=== PATIENT | male | born 1995 | race Caucasian/White ===

== ENCOUNTER 2016-06-19 06:08 | Emergency (ER) | payer OTHER ==
[2016-06-19] MEDS ORDERED: IBUPROFEN IV 600 MG in SODIUM CHLORIDE 0.9% 250 ML IV STA (06:22)
[2016-06-19] MEDS ORDERED: ONDANSETRON 4 MG/2 ML VIAL IVP STA (06:22)
[2016-06-19] MEDS ORDERED: SODIUM CHLORIDE 0.9% 1,000 ML IV STA (06:23)
[2016-06-19] MEDS ORDERED: DIPHENOX-ATROP 2.5-0.025 MG 1 EACH TAB PO STA (06:23)
--- NOTE | 2016-06-19 06:26 | ED ---
General Adult HPI - General Source: patient, RN notes reviewed Mode of arrival: wheelchair Limitations: no limitations <Flo Lee - Last Filed: 06/19/16 07:01> <Jaren Denny - Last Filed: 06/19/16 08:25> - General Chief complaint: Nausea/Vomiting/Diarrhea Stated complaint: NVD,abd pain Time Seen by Provider: 06/19/16 06:10 - History of Present Illness Initial comments: This is a 20-year-old male who presents to the emergency department complaining of abdominal pain with nausea vomiting and diarrhea. Patient states started about 2 hours ago and the vomiting has seemed to subside with diarrhea continues. Patient states abdominal pain is lower abdomen. Patient states has not one side worse than the other. Patient denies any dysuria hematuria urinary frequency. Patient did have a low-grade fever and some chills. Patient denies any difficulty breathing shortness of breath per patient denies headache patient denies numbness weakness. Patient denies being around anyone who has similar symptoms. Patient states he ate the same things other people tonight and no one else is sick. (Flo Lee) - Related Data Previous Rx's Medication Instructions Recorded Dicyclomine HCl [Bentyl] 20 mg PO QID PRN #15 tab 06/19/16 Ondansetron Odt [Zofran Odt] 4 mg PO Q8HR PRN #10 tab 06/19/16 Allergies Allergy/AdvReac Type Severity Reaction Status Date / Time No Known Allergies Allergy Verified 06/19/16 07:47 Review of Systems ROS Other: All systems not noted in ROS Statement are negative. <Flo Lee - Last Filed: 06/19/16 07:01> ROS Other: All systems not noted in ROS Statement are negative. <Jaren Denny - Last Filed: 06/19/16 08:25> ROS Statement: Those systems with pertinent positive or pertinent negative responses have been documented in the HPI. Past Medical History Past Medical History: No Reported History History of Any Multi-Drug Resistant Organisms: None Reported Past Surgical History: No Surgical Hx Reported Additional Past Surgical History / Comment(s): ingrown toenail Past Psychological History: Anxiety, Depression Smoking Status: Former smoker Past Alcohol Use History: Rare Past Drug Use History: None Reported <Flo Lee - Last Filed: 06/19/16 07:01> General Exam Limitations: no limitations <Flo Lee - Last Filed: 06/19/16 07:01> <Jaren Denny - Last Filed: 06/19/16 08:25> - General Exam Comments Initial Comments: GENERAL: Patient is well-developed and well-nourished. Patient is nontoxic and well- hydrated and is in mild distress. ENT: Neck is soft and supple. No significant lymphadenopathy is noted. Oropharynx is clear. Moist mucous membranes. Neck has full range of motion without eliciting any pain. EYES: The sclera were anicteric and conjunctiva were pink and moist. Extraocular movements were intact and pupils were equal round and reactive to light. Eyelids were unremarkable. PULMONARY: Unlabored respirations. Good breath sounds bilaterally. No audible rales rhonchi or wheezing was noted. CARDIOVASCULAR: There is a regular rate and rhythm without any murmurs gallops or rubs. ABDOMEN: Soft and nontender with normal bowel sounds. No palpable organomegaly was noted. There is no palpable pulsatile mass. SKIN: Skin is clear with no lesions or rashes and otherwise unremarkable. NEUROLOGIC: Patient is alert and oriented x3. Cranial nerves II through XII are grossly intact. Motor and sensory are also intact. Normal speech, volume and content. Symmetrical smile. MUSCULOSKELETAL: Normal extremities with adequate strength and full range of motion. LYMPHATICS: No significant lymphadenopathy is noted PSYCHIATRIC: Normal psychiatric evaluation. (Flo Lee) Course <Flo Lee - Last Filed: 06/19/16 07:01> <Jaren Denny - Last Filed: 06/19/16 08:25> Vital Signs 06/19/16 06:10 Temperature 100.1 F H Pulse Rate 115 H Respiratory 20 Rate Blood Pressure 124/78 O2 Sat by Pulse 98 Oximetry - Reevaluation(s) Reevaluation #1: 06/19/16 07:48 Patient was reexamined by myself, Dr. Denny. Patient does have mild suprapubic tenderness to palpation. Patient offered computed tomography scan and would like to have this done. (Jaren Denny) Medical Decision Making - Lab Data Result diagrams: 06/19/16 06:25 06/19/16 06:25 <Flo Lee - Last Filed: 06/19/16 07:01> - Lab Data Result diagrams: 06/19/16 06:25 06/19/16 06:25 - Radiology Data Radiology results: report reviewed (Computed tomography scan of abdomen and pelvis shows no acute abnormality.) <Jaren Denny - Last Filed: 06/19/16 08:25> - Medical Decision Making Dr. Denny will be taking over the care of this patient at 7 AM (Flo Lee) Patient again reexamined and resting comfortably in bed. Patient updated on results and need for follow-up. (Jaren Denny) - Lab Data Lab Results 06/19/16 06/19/16 06/19/16 Range/Units 06:25 06:25 06:25 WBC 13.3 H (3.8-10.6) k/uL RBC 5.75 (4.30-5.90) m/uL Hgb 16.8 (13.0-17.5) gm/dL Hct 47.4 (39.0-53.0) % MCV 82.5 (80.0-100.0) fL MCH 29.3 (25.0-35.0) pg MCHC 35.5 (31.0-37.0) g/dL RDW 12.2 (11.5-15.5) % Plt Count 274 (150-450) k/uL Neutrophils % 84 % Lymphocytes % 7 % Monocytes % 6 % Eosinophils % 2 % Basophils % 0 % Neutrophils # 11.2 H (1.3-7.7) k/uL Lymphocytes # 0.9 L (1.0-4.8) k/uL Monocytes # 0.9 (0-1.0) k/uL Eosinophils # 0.3 (0-0.7) k/uL Basophils # 0.0 (0-0.2) k/uL Sodium 143 (137-145) mmol/L Potassium 4.3 (3.5-5.1) mmol/L Chloride 108 H (98-107) mmol/L Carbon Dioxide 19 L (22-30) mmol/L Anion Gap 16 mmol/L BUN 17 (9-20) mg/dL Creatinine 0.99 (0.66-1.25) mg/dL Est GFR (MDRD) Af Amer >60 (>60 ml/min/1.73 sqM) Est GFR (MDRD) Non-Af >60 (>60 ml/min/1.73 sqM) Glucose 121 H (74-99) mg/dL Calcium 10.0 (8.4-10.2) mg/dL Total Bilirubin 1.3 (0.2-1.3) mg/dL AST 27 (17-59) U/L ALT 53 (21-72) U/L Alkaline Phosphatase 99 (38-126) U/L Total Protein 8.0 (6.3-8.2) g/dL Albumin 4.7 (3.5-5.0) g/dL Amylase 45 (30-110) U/L Lipase 51 (23-300) U/L Urine Color Yellow Urine Appearance Clear (Clear) Urine pH 7.5 (5.0-8.0) Ur Specific [place] 1.023 (1.001-1.035) Urine Protein Trace H (Negative) Urine Glucose (UA) Negative (Negative) Urine Ketones Negative (Negative) Urine Blood Negative (Negative) Urine Nitrate Negative (Negative) Urine Bilirubin Negative (Negative) Urine Urobilinogen 4.0 (<2.0) mg/dL Ur Leukocyte Esterase Negative (Negative) Disposition <Flo Lee - Last Filed: 06/19/16 07:01> <Jaren Denny - Last Filed: 06/19/16 08:25> Clinical Impression: Vomiting, Diarrhea Disposition: HOME SELF-CARE Condition: Stable Instructions: Acute Nausea and Vomiting (ED), Acute Diarrhea (ED) Additional Instructions: Please follow-up with primary care physician in the next day or 2 for recheck. Return for increased pain, uncontrolled fevers, uncontrolled vomiting, worsening symptoms or other concerns. [id number] Tylenol or Motrin if needed for fever. Prescriptions: Dicyclomine HCl [Bentyl] 20 mg PO QID PRN #15 tab PRN Reason: Pain Ondansetron Odt [Zofran Odt] 4 mg PO Q8HR PRN #10 tab PRN Reason: Nausea Referrals: None,Stated [Primary Care Provider] - 1-2 days Ceci Mcwilliams MD [STAFF PHYSICIAN] - 1-2 days Ej Smith MD [STAFF PHYSICIAN] - 1-2 days
[2016-06-19 06:35] LABS: Basophils % (A) 0 %; CH 29.9; CHCM 36.4; Eosinophils # (A) 0.3 k/uL (0-0.7); Eosinophils % (A) 2 %; HCT 47.4 % (39.0-53.0); HDW 2.64; HGB 16.8 gm/dL (13.0-17.5); Luc # (Auto) 0.08; Luc % (Auto) 1; Lymphocytes # (A) 0.9 k/uL (1.0-4.8); Lymphocytes % (A) 7 %; MCH 29.3 pg (25.0-35.0); MCHC 35.5 g/dL (31.0-37.0); MCV 82.5 fL (80.0-100.0); Mean Platelet Volume 7.4; Monocytes # (A) 0.9 k/uL (0-1.0); Monocytes % (A) 6 %; Neutrophils # (A) 11.2 k/uL (1.3-7.7); Neutrophils % (A) 84 %; RBC 5.75 m/uL (4.30-5.90); RDW 12.2 % (11.5-15.5); WBC 13.3 k/uL (3.8-10.6); WBC (Perox) 13.31
[2016-06-19 06:36] LABS: Appearance,Urine Clear (Clear); Bilirubin,Urine Negative (Negative); Glucose,Urine (UA) Negative (Negative); Ketones,Urine Negative (Negative); Leukocyte Esterase,Urine Negative (Negative); Nitrite,Urine Negative (Negative); PH, Urine 7.5 (5.0-8.0); Protein,Urine Trace (Negative); Specific Gravity,Urine 1.023 (1.001-1.035); UA Billing (MACRO vs. MICRO) CHEM
[2016-06-19 06:46] LABS: ALT 53 U/L (21-72); AST 27 U/L (17-59); Alkaline Phosphatase 99 U/L (38-126); Amylase 45 U/L (30-110); Anion Gap 16 mmol/L; Blood Urea Nitrogen 17 mg/dL (9-20); Carbon Dioxide 19 mmol/L (22-30); Chloride 108 mmol/L (98-107); Glucose 121 mg/dL (74-99); Non-African American GFR(MDRD) >60 (>60 ml/min/1.73 sqM); Potassium 4.3 mmol/L (3.5-5.1); Sodium 143 mmol/L (137-145); Total Bilirubin 1.3 mg/dL (0.2-1.3)
[2016-06-19] MEDS ORDERED: RX INFO: IV CONTRAST WAS GIVEN 1 EACH MISC MISCELLANE PRN (07:42)
--- NOTE | 2016-06-19 08:15 | CT ---
EXAMINATION TYPE: CT abdomen pelvis w con DATE OF EXAM: 06/19/2016 8:04 AM COMPARISON: NONE HISTORY: nausea, vomiting, diarrhea, lower abd pain CT DLP: 935.9 mGycm, Automated Exposure Control for Dose Reduction was Utilized. CONTRAST: CT scan of the abdomen and pelvis is performed without oral but with IV Contrast, patient injected wi th 100 ml mL of Omnipaque 300. FINDINGS: LUNG BASES: No significant abnormality is appreciated. LIVER/GB: No significant abnormality is appreciated. PANCREAS: No significant abnormality is seen. SPLEEN: No significant abnormality is seen. ADRENALS: No significant abnormality is seen. KIDNEYS: No significant abnormality is seen. BOWEL: Evaluation of bowel is suboptimal due to lack of enteric contrast. There is no suspicious smal l or large bowel dilatation seen. Normal appearing appendix is noted from cecum seen best on axial im ages 68 through 72 and coronal images 36 through 46. PROSTATE/SEMINAL VESICLES: No gross abnormality seen. LYMPH NODES: No greater than 1cm abdominal or pelvic lymph nodes are appreciated. A few scattered valadez bcentimeter lymph nodes throughout the mesentery are present. OSSEOUS STRUCTURES: No significant abnormality is seen. OTHER: No significant additional abnormality is seen. IMPRESSION: No CT evidence for bowel obstruction or acute appendicitis. No significant acute finding is seen to account for patient's clinical symptoms on this study..
[2016-06-19 08:38] VITALS: BP 126/65; PULSE 103; RESP 17; TEMP 98.7
== END 2016-06-19 08:36 | disposition home or self-care (01) ==
LOC: EC 06:08
DX: R11.2 Nausea with vomiting, unspecified (principal); R19.7 Diarrhea, unspecified; R10.30 Lower abdominal pain, unspecified; R50.9 Fever, unspecified; Z87.891 Personal history of nicotine dependence
CPT/HCPCS: 36415; 80053; 82150; 83690; 85025; 81003; 74177; 99284; 96365; 96375; J2405; Q9967; J1741

== ENCOUNTER 2017-11-12 00:02 | Emergency (ER) | payer OTHER ==
--- NOTE | 2017-11-12 00:46 | ED ---
Chest Pain HPI - General Chief Complaint: Chest Pain Stated Complaint: Chest Pain Time Seen by Provider: 11/12/17 00:41 Source: patient Mode of arrival: ambulatory Limitations: no limitations - History of Present Illness Initial Comments: This patient is a 22-year-old man who presents to be evaluated for chest pain that started this evening while he was at work. States it started in the substernal area and then felt like it was spreading across the left side. He states he has never felt pain like this before. The patient has not noted worsening or relieving factors. The pain is constant, tearing, moderate severity. He has not had any associated symptoms. Patient denies family history of any cardiac disease. Patient is nonsmoker. MD Complaint: chest pain Onset/Timin -: hour(s) Onset: other (While at work) Pain Location: substernal, left chest Pain Radiation: none Severity: moderate Quality: ripping Consistency: constant Improves With: nothing Worsens With: nothing Treatments Prior to Arrival: none - Related Data Previous Rx's Medication Instructions Recorded Dicyclomine HCl [Bentyl] 20 mg PO QID PRN #15 tab 06/19/16 Ondansetron Odt [Zofran Odt] 4 mg PO Q8HR PRN #10 tab 06/19/16 Allergies Allergy/AdvReac Type Severity Reaction Status Date / Time No Known Allergies Allergy Verified 11/12/17 00:23 Review of Systems ROS Statement: Those systems with pertinent positive or pertinent negative responses have been documented in the HPI. ROS Other: All systems not noted in ROS Statement are negative. Constitutional: Denies: fever, chills Respiratory: Denies: cough, dyspnea Cardiovascular: Reports: chest pain. Denies: palpitations, dyspnea on exertion , orthopnea, edema, syncope Gastrointestinal: Denies: abdominal pain, vomiting, diarrhea Genitourinary: Denies: dysuria, hematuria Musculoskeletal: Denies: back pain Skin: Denies: rash Neurological: Denies: headache, weakness, numbness EKG Findings - EKG Results: EKG: interpreted by LEO PIMENTEL, sinus rhythm (Sinus arrhythmia, rate 89 bpm), normal axis, normal QRS, normal ST/T, no acute changes - LA, Pacemaker, Normal: Normal tracing: normal tracing Past Medical History Past Medical History: No Reported History History of Any Multi-Drug Resistant Organisms: None Reported Past Surgical History: No Surgical Hx Reported Additional Past Surgical History / Comment(s): ingrown toenail Past Psychological History: Anxiety, Depression Smoking Status: Former smoker Past Alcohol Use History: Rare Past Drug Use History: None Reported General Exam Limitations: no limitations General appearance: alert, in no apparent distress Head exam: Present: atraumatic, normocephalic Eye exam: Present: normal appearance Neck exam: Present: normal inspection Respiratory exam: Present: normal lung sounds bilaterally, chest wall tenderness. Absent: respiratory distress, wheezes, rales, rhonchi, stridor, accessory muscle use, decreased breath sounds, prolonged expiratory Cardiovascular Exam: Present: regular rate, normal rhythm, normal heart sounds. Absent: systolic murmur, diastolic murmur, rubs, gallop GI/Abdominal exam: Present: soft. Absent: distended, tenderness, guarding, rebound, mass Extremities exam: Present: normal inspection, normal capillary refill. Absent: pedal edema, calf tenderness Back exam: Present: normal inspection. Absent: CVA tenderness (R), CVA tenderness (L) Neurological exam: Present: alert Skin exam: Present: warm, dry, intact, normal color. 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
[2017-11-12] MEDS ORDERED: ASPIRIN 81 MG PO STA (01:18)
[2017-11-12 01:29] LABS: Basophils # (A) 0.1 k/uL (0-0.2); Basophils % (A) 0 %; Eosinophils # (A) 0.2 k/uL (0-0.7); Eosinophils % (A) 2 %; HCT 43.3 % (39.0-53.0); HGB 15.7 gm/dL (13.0-17.5); Lymphocytes # (A) 3.9 k/uL (1.0-4.8); Lymphocytes % (A) 33 %; MCH 29.9 pg (25.0-35.0); MCHC 36.3 g/dL (31.0-37.0); MCV 82.2 fL (80.0-100.0); Mean Platelet Volume 6.8; Monocytes # (A) 0.8 k/uL (0-1.0); Monocytes % (A) 7 %; Neutrophils # (A) 6.8 k/uL (1.3-7.7); Neutrophils % (A) 57 %; Platelet Count 283 k/uL (150-450); RBC 5.27 m/uL (4.30-5.90); RDW 12.5 % (11.5-15.5); WBC 11.9 k/uL (3.8-10.6)
[2017-11-12 01:38] VITALS: BP 138/79; PULSE 101; RESP 18; TEMP 97.9
[2017-11-12 01:48] LABS: ALT 47 U/L (21-72); AST 26 U/L (17-59); Albumin 4.4 g/dL (3.5-5.0); Alkaline Phosphatase 84 U/L (38-126); Anion Gap 14 mmol/L; Blood Urea Nitrogen 18 mg/dL (9-20); Calcium 9.6 mg/dL (8.4-10.2); Carbon Dioxide 23 mmol/L (22-30); Chloride 103 mmol/L (98-107); Glucose 93 mg/dL (74-99); Magnesium 1.8 mg/dL (1.6-2.3); Potassium 4.1 mmol/L (3.5-5.1); Sodium 140 mmol/L (137-145); Total Bilirubin 0.5 mg/dL (0.2-1.3); Total Protein 7.1 g/dL (6.3-8.2)
--- NOTE | 2017-11-12 01:52 | XR ---
EXAMINATION TYPE: XR chest 1V portable DATE OF EXAM: 11/12/2017 COMPARISON: NONE HISTORY: Chest pain TECHNIQUE: Single frontal view of the chest is obtained. FINDINGS: Heart and mediastinum are normal. Lungs are clear. Diaphragm is normal. There are chest le ads. Bony thorax is intact. IMPRESSION: Normal chest
[2017-11-12 02:10] LABS: D-Dimer 0.18 mg/L FEU (<0.60); Partial Thromboplastin Time 25.7 sec (22.0-30.0); Prothrombin Time 9.8 sec (9.0-12.0)
[2017-11-12 13:13] LABS: Creatine Kinase 65 U/L (55-170); Creatine Kinase MB 0.3 ng/mL (0.0-2.4); Troponin I <0.012 ng/mL (0.000-0.034)
== END 2017-11-12 07:30 | disposition home or self-care (01) ==
LOC: EC 00:02
DX: R07.2 Precordial pain (principal); Z87.891 Personal history of nicotine dependence
CPT/HCPCS: 36415; 71045; 80053; 82550; 82553; 83735; 84484; 85025; 85379; 85610; 85730; 93005; 99285

== ENCOUNTER 2018-07-23 20:45 | Emergency (ER) | payer OTHER ==
[2018-07-23 20:49] VITALS: BP 140/86; PULSE 77; RESP 20; TEMP 97.9
[2018-07-23] MEDS ORDERED: KETOROLAC 30 MG/ML 1 ML VIAL IVP STA (21:02)
--- NOTE | 2018-07-23 21:03 | ED ---
General Adult HPI - General Chief complaint: Abdominal Pain Stated complaint: Abd Pain Time Seen by Provider: 07/23/18 20:51 Source: patient Mode of arrival: ambulatory Limitations: no limitations - History of Present Illness Initial comments: Dictation was produced using [employer] dictation software. please excuse any grammatical, word or spelling errors. Chief Complaint: 22-year-old male presents with right lower quadrant abdominal pain. History of Present Illness: 22-year-old male with no significant past medical history. He presents today with 3 days of right lower quadrant abdominal pain. Patient states his symptoms are intermittently exacerbated with by mouth intake. Patient states she has multiple large bowel movements. States that his pain was progressively severe probably him to come to the emergency department today. Patient claims of nausea however no vomiting. Denies any constitutional symptoms. Patient denies any abdominal surgery. He does report still having his appendix and his gallbladder. The ROS documented in this emergency department record has been reviewed and confirmed by me. Those systems with pertinent positive or negative responses have been documented in the HPI. All other systems are other negative and/or noncontributory. PHYSICAL EXAM: General Impression: Alert and oriented x3, acute distress secondary to pain HEENT: Normocephalic atraumatic, extra-ocular movements intact, pupils equal and reactive to light bilaterally, mucous membranes moist. Cardiovascular: Heart regular rate and rhythm, S1&S2 audible, no murmurs, rubs or gallops Chest: Lungs clear to auscultation bilaterally, no rhonchi, no wheeze, no rales Abdomen: Diffuse abdominal tenderness, worse in the right lower quadrant at McBurney's point, negative rebound tenderness, negative Rovsing's, negative Mercado sign Musculoskeletal: Pulses present and equal in all extremities, no peripheral edema Motor: Power 5/5 bilaterally, no focal deficits noted Neurological: CN II-XII grossly intact, no focal motor or sensory deficits noted Skin: Intact with no visualized rashes Psych: Normal affect and mood ED course: 22-year-old male presents with chief complaint of right lower quadrant abdominal pain. Vital signs upon arrival are within acceptable limits. Patient is in acute distress. There is some clinical suspicion of acute appendicitis. Laboratory evaluation obtained. CBC, metabolic panel is unremarkable. Urinalysis is negative. CT abdomen and pelvis did not show an acute processes. Discussed with patient these findings. Patient told that his symptoms are unclear at this time however there are any high risk features with his evaluation. Patient given follow-up with gastroenterology. Patient told to take Motrin, and Tylenol for his pain symptoms. Patient told to return to the emergency Department with worsening intractable pain, fevers. Patient reevaluated at bedside abdominal exam is benign, and patient feels asymptomatic at this time. - Related Data Home Medications Medication Instructions Recorded Confirmed No Known Home Medications 07/23/18 07/23/18 Allergies Allergy/AdvReac Type Severity Reaction Status Date / Time No Known Allergies Allergy Verified 07/23/18 21:24 Review of Systems ROS Statement: Those systems with pertinent positive or pertinent negative responses have been documented in the HPI. ROS Other: All systems not noted in ROS Statement are negative. Past Medical History Past Medical History: No Reported History History of Any Multi-Drug Resistant Organisms: None Reported Past Surgical History: No Surgical Hx Reported Additional Past Surgical History / Comment(s): ingrown toenail Past Psychological History: Anxiety, Depression Smoking Status: Former smoker Past Alcohol Use History: Rare Past Drug Use History: None Reported General Exam Limitations: no limitations Course Vital Signs 07/23/18 20:48 Temperature 97.9 F Pulse Rate 77 Respiratory 20 Rate Blood Pressure 140/86 O2 Sat by Pulse 99 Oximetry Medical Decision Making - Lab Data Result diagrams: 07/23/18 21:06 07/23/18 21:06 Lab Results 07/23/18 07/23/18 07/23/18 Range/Units 21:06 21:06 21:32 WBC 9.8 (3.8-10.6) k/uL RBC 5.51 (4.30-5.90) m/uL Hgb 15.9 (13.0-17.5) gm/dL Hct 46.1 (39.0-53.0) % MCV 83.6 (80.0-100.0) fL MCH 28.9 (25.0-35.0) pg MCHC 34.6 (31.0-37.0) g/dL RDW 12.3 (11.5-15.5) % Plt Count 183 (150-450) k/uL Neutrophils % 52 % Lymphocytes % 36 % Monocytes % 7 % Eosinophils % 3 % Basophils % 0 % Neutrophils # 5.1 (1.3-7.7) k/uL Lymphocytes # 3.5 (1.0-4.8) k/uL Monocytes # 0.7 (0-1.0) k/uL Eosinophils # 0.3 (0-0.7) k/uL Basophils # 0.0 (0-0.2) k/uL Sodium 138 (137-145) mmol/L Potassium 4.1 (3.5-5.1) mmol/L Chloride 107 (98-107) mmol/L Carbon Dioxide 22 (22-30) mmol/L Anion Gap 9 mmol/L BUN 15 (9-20) mg/dL Creatinine 0.82 (0.66-1.25) mg/dL Est GFR (CKD-EPI)AfAm >90 (>60 ml/min/1.73 sqM) Est GFR (CKD-EPI)NonAf >90 (>60 ml/min/1.73 sqM) Glucose 101 H (74-99) mg/dL Calcium 9.6 (8.4-10.2) mg/dL Total Bilirubin 1.0 (0.2-1.3) mg/dL AST 37 (17-59) U/L ALT 59 (21-72) U/L Alkaline Phosphatase 81 (38-126) U/L Total Protein 7.6 (6.3-8.2) g/dL Albumin 4.5 (3.5-5.0) g/dL Lipase 138 (23-300) U/L Urine Color Yellow Urine Appearance Clear (Clear) Urine pH 7.0 (5.0-8.0) Ur Specific [place] 1.020 (1.001-1.035) Urine Protein Negative (Negative) Urine Glucose (UA) Negative (Negative) Urine Ketones Negative (Negative) Urine Blood Negative (Negative) Urine Nitrite Negative (Negative) Urine Bilirubin Negative (Negative) Urine Urobilinogen 2.0 (<2.0) mg/dL Ur Leukocyte Esterase Negative (Negative) Disposition Clinical Impression: Abdominal pain Disposition: HOME SELF-CARE Condition: Good Instructions (If sedation given, give patient instructions): Abdominal Pain (ED) Is patient prescribed a controlled substance at d/c from ED?: No Referrals: Karlos Ceja Jr, DO [Primary Care Provider] - 1-2 days Crow Mitchell MD [STAFF PHYSICIAN] - 1-2 days Precious Ruiz MD [STAFF PHYSICIAN] - 1-2 days Terrance Weaver MD [STAFF PHYSICIAN] - 1-2 days Time of Disposition: 22:31
[2018-07-23 21:16] LABS: Basophils % (A) 0 %; Eosinophils # (A) 0.3 k/uL (0-0.7); Eosinophils % (A) 3 %; HCT 46.1 % (39.0-53.0); HGB 15.9 gm/dL (13.0-17.5); Lymphocytes # (A) 3.5 k/uL (1.0-4.8); Lymphocytes % (A) 36 %; MCH 28.9 pg (25.0-35.0); MCHC 34.6 g/dL (31.0-37.0); MCV 83.6 fL (80.0-100.0); Mean Platelet Volume 8.1; Monocytes # (A) 0.7 k/uL (0-1.0); Monocytes % (A) 7 %; Neutrophils # (A) 5.1 k/uL (1.3-7.7); Neutrophils % (A) 52 %; Platelet Count 183 k/uL (150-450); RBC 5.51 m/uL (4.30-5.90); RDW 12.3 % (11.5-15.5); WBC 9.8 k/uL (3.8-10.6)
[2018-07-23 21:26] LABS: ALT 59 U/L (21-72); AST 37 U/L (17-59); Albumin 4.5 g/dL (3.5-5.0); Alkaline Phosphatase 81 U/L (38-126); Anion Gap 9 mmol/L; Blood Urea Nitrogen 15 mg/dL (9-20); Calcium 9.6 mg/dL (8.4-10.2); Carbon Dioxide 22 mmol/L (22-30); Chloride 107 mmol/L (98-107); Glucose 101 mg/dL (74-99); Lipase 138 U/L (23-300); Potassium 4.1 mmol/L (3.5-5.1); Sodium 138 mmol/L (137-145); Total Protein 7.6 g/dL (6.3-8.2)
[2018-07-23 21:44] LABS: Appearance,Urine Clear (Clear); Bilirubin,Urine Negative (Negative); Blood,Urine Negative (Negative); Color,Urine Yellow; Glucose,Urine (UA) Negative (Negative); Ketones,Urine Negative (Negative); Leukocyte Esterase,Urine Negative (Negative); Nitrite,Urine Negative (Negative); Protein,Urine Negative (Negative)
--- NOTE | 2018-07-23 22:02 | CT ---
EXAMINATION TYPE: CT abdomen pelvis w con DATE OF EXAM: 07/23/2018 COMPARISON: June 19, 2016 HISTORY: Right lower quadrant abdominal pain and nausea. CT DLP: 1421.9 mGycm Automated exposure control for dose reduction was used. TECHNIQUE: Helical acquisition of images was performed from the lung bases through the pelvis. CONTRAST: Performed without Oral Contrast and with IV Contrast, patient injected with 100ml mL of Isovue 300. FINDINGS: Lung bases are clear. There is no pleural effusion. Heart size is normal. Stomach appears normal. Gini er spleen gallbladder appear normal. There is 2 mm posterior pancreatic head calcification unchanged and of doubtful significance. Bile ducts are not dilated. There is no adrenal mass. Kidneys show sati sfactory contrast opacification. There is no hydronephrosis. There is no retroperitoneal adenopathy. There is no mesenteric edema. Appendix appears normal. Bladder distends smoothly. There is no inguinal hernia. There is no free fluid in the pelvis. I see n o intestinal wall thickening. There are no dilated loops. The bony structures appear normal. IMPRESSION: NO ACUTE ABNORMALITY OF THE ABDOMEN AND PELVIS. NO ADVERSE CHANGE COMPARED TO OLD EXAM.
== END 2018-07-23 22:48 | disposition home or self-care (01) ==
LOC: EC 20:45
DX: R10.31 Right lower quadrant pain (principal); R11.0 Nausea; R10.817 Generalized abdominal tenderness; R10.813 Right lower quadrant abdominal tenderness; Z87.891 Personal history of nicotine dependence
CPT/HCPCS: 36415; 80053; 83690; 85025; 81003; 74177; 99284; 96374; J1885; Q9967

== ENCOUNTER 2019-01-03 04:54 | Emergency (ER) | payer OTHER ==
[2019-01-03 04:59] VITALS: RESP 18; TEMP 98.9
[2019-01-03 05:56] VITALS: BP 138/97; PULSE 100
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
== END 2019-01-03 06:43 | disposition home or self-care (01) ==
LOC: EC 04:54
DX: Z04.1 Encounter for examination and observation following transport accident (principal); R51 Headache; Z87.891 Personal history of nicotine dependence
CPT/HCPCS: 70450; 72125; 99284

== ENCOUNTER 2019-05-19 21:47 | Emergency (ER) | payer OTHER ==
[2019-05-19] MEDS ORDERED: FAMOTIDINE 20 MG/2 ML VIAL IV STA (22:04)
[2019-05-19] MEDS ORDERED: MORPHINE SULFATE 4 MG/ML SYRINGE IV STA (22:04)
[2019-05-19] MEDS ORDERED: SODIUM CHLORIDE 0.9% 1,000 ML IV STA (22:04)
[2019-05-19] MEDS ORDERED: ONDANSETRON 4 MG/2 ML VIAL IVP STA (22:04)
--- NOTE | 2019-05-19 22:24 | ED ---
Abdominal Pain HPI - General Chief Complaint: Abdominal Pain Stated Complaint: abd pain Time Seen by Provider: 05/19/19 21:54 Source: patient Mode of arrival: ambulatory Limitations: no limitations - History of Present Illness Initial Comments: 23-year-old male patient presents to the emergency department today for evaluation of right upper quadrant abdominal pain, bloating, and belching. Patient states symptoms started around 7 PM with the belching. States that his pain has been gradually worsening since around 8:30. Denies any radiation of the pain to his back or shoulders. Denies any fever or chills. Denies any nausea or vomiting. 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 Denies any recent travel or sick contacts. States he did have 2 alcoholic beverages with dinner which is not unusual for him. Denies any history of abdominal surgery. Did take ibuprofen this morning for headache. Patient denies any recent rash, shortness breath, chest pain, back pain, numbness, tingling, dizziness, weakness, hematuria, dysuria, urinary urgency, urinary frequency, headache, visual changes, or any other complaints. - Related Data Previous Rx's Medication Instructions Recorded Ibuprofen [Motrin] 800 mg PO TID #30 tab 01/03/19 Methocarbamol [Robaxin-750] 750 mg PO TID #30 tablet 01/03/19 Famotidine [Pepcid] 20 mg PO HS #30 tablet 05/19/19 Allergies Allergy/AdvReac Type Severity Reaction Status Date / Time No Known Allergies Allergy Verified 05/19/19 21:52 Review of Systems ROS Statement: Those systems with pertinent positive or pertinent negative responses have been documented in the HPI. ROS Other: All systems not noted in ROS Statement are negative. Past Medical History Past Medical History: No Reported History History of Any Multi-Drug Resistant Organisms: None Reported Past Surgical History: No Surgical Hx Reported Additional Past Surgical History / Comment(s): ingrown toenail Past Psychological History: Anxiety, Depression Smoking Status: Former smoker Past Alcohol Use History: Rare Past Drug Use History: None Reported General Exam Limitations: no limitations General appearance: alert, in no apparent distress, other (This is a well- developed, well-nourished adult male patient in no acute distress. Vital signs upon presentation are temperature 97.9F, pulse 65, respirations 20, blood pressure 142/87, pulse ox 100% on room air.) Eye exam: Present: normal appearance, PERRL, EOMI. Absent: scleral icterus, conjunctival injection, periorbital swelling ENT exam: Present: normal exam, normal oropharynx, mucous membranes moist Respiratory exam: Present: normal lung sounds bilaterally. Absent: respiratory distress, wheezes, rales, rhonchi, stridor Cardiovascular Exam: Present: regular rate, normal rhythm, normal heart sounds. Absent: systolic murmur, diastolic murmur, rubs, gallop, clicks GI/Abdominal exam: Present: soft, tenderness (Midepigastric right upper quadrant tenderness), normal bowel sounds. Absent: distended, guarding, rebound, rigid Neurological exam: Present: alert, oriented X3, CN II-XII intact Psychiatric exam: Present: normal affect, normal mood Skin exam: Present: warm, dry, intact, normal color. Absent: rash Course Vital Signs 05/19/19 05/19/19 21:50 23:15 Temperature 97.9 F 97.6 F Pulse Rate 65 94 Respiratory 20 17 Rate Blood Pressure 142/87 146/88 O2 Sat by Pulse 100 100 Oximetry Medical Decision Making - Medical Decision Making 23-year-old male patient presents the emergency department today for evaluation of right upper quadrant pain and belching. Physical examination reveals mid epigastric right upper quadrant tenderness. Labs reviewed and are unremarkable. White blood cell count is normal. Liver enzymes are normal. Vital signs are within normal ranges. He does have improvement of symptoms after receiving IV fluids and Pepcid. We discharged him up with his primary care physician for recheck in 1-2 days. Return parameters discussed in detail. He verbalizes understanding and agrees with this plan. - Lab Data Result diagrams: 05/19/19 22:23 05/19/19 22:23 Lab Results 05/19/19 05/19/19 05/19/19 Range/Units 22:23 22:23 22:23 WBC 8.8 (3.8-10.6) k/uL RBC 5.35 (4.30-5.90) m/uL Hgb 15.1 (13.0-17.5) gm/dL Hct 43.9 (39.0-53.0) % MCV 82.2 (80.0-100.0) fL MCH 28.2 (25.0-35.0) pg MCHC 34.3 (31.0-37.0) g/dL RDW 12.4 (11.5-15.5) % Plt Count 242 (150-450) k/uL Neutrophils % 40 % Lymphocytes % 48 % Monocytes % 7 % Eosinophils % 2 % Basophils % 0 % Neutrophils # 3.5 (1.3-7.7) k/uL Lymphocytes # 4.2 (1.0-4.8) k/uL Monocytes # 0.6 (0-1.0) k/uL Eosinophils # 0.2 (0-0.7) k/uL Basophils # 0.0 (0-0.2) k/uL Sodium 138 (137-145) mmol/L Potassium 3.9 (3.5-5.1) mmol/L Chloride 108 H (98-107) mmol/L Carbon Dioxide 20 L (22-30) mmol/L Anion Gap 10 mmol/L BUN 18 (9-20) mg/dL Creatinine 0.86 (0.66-1.25) mg/dL Est GFR (CKD-EPI)AfAm >90 (>60 ml/min/1.73 sqM) Est GFR (CKD-EPI)NonAf >90 (>60 ml/min/1.73 sqM) Glucose 148 H (74-99) mg/dL Calcium 9.7 (8.4-10.2) mg/dL Total Bilirubin 0.5 (0.2-1.3) mg/dL AST 38 (17-59) U/L ALT 49 (4-49) U/L Alkaline Phosphatase 105 (38-126) U/L Total Protein 7.0 (6.3-8.2) g/dL Albumin 4.1 (3.5-5.0) g/dL Amylase 45 (30-110) U/L Lipase 64 (23-300) U/L Urine Color Light Yellow Urine Appearance Clear (Clear) Urine pH 7.0 (5.0-8.0) Ur Specific [place] 1.018 (1.001-1.035) Urine Protein Negative (Negative) Urine Glucose (UA) Negative (Negative) Urine Ketones Negative (Negative) Urine Blood Negative (Negative) Urine Nitrite Negative (Negative) Urine Bilirubin Negative (Negative) Urine Urobilinogen <2.0 (<2.0) mg/dL Ur Leukocyte Esterase Negative (Negative) - Radiology Data Radiology results: report reviewed, image reviewed KUB x-ray is obtained. Report was reviewed in its entirety. Impression by Dr. Tovar shows nonacute abdomen Disposition Clinical Impression: Abdominal pain, Belching Disposition: HOME SELF-CARE Condition: Good Instructions (If sedation given, give patient instructions): Abdominal Pain (ED), Indigestion (ED) Additional Instructions: Take medications as directed. Follow up with primary care physician for recheck in 1-2 days. Return to the emergency department immediately for any new, worsening, or concerning symptoms. Prescriptions: Famotidine [Pepcid] 20 mg PO HS #30 tablet Is patient prescribed a controlled substance at d/c from ED?: No Referrals: None,Stated [Primary Care Provider] - 1-2 days Time of Disposition: 23:54
[2019-05-19 22:37] LABS: Appearance,Urine Clear (Clear); Bilirubin,Urine Negative (Negative); Blood,Urine Negative (Negative); Color,Urine Light Yellow; Glucose,Urine (UA) Negative (Negative); Ketones,Urine Negative (Negative); Leukocyte Esterase,Urine Negative (Negative); Nitrite,Urine Negative (Negative); Protein,Urine Negative (Negative); Specific Gravity,Urine 1.018 (1.001-1.035); Urobilinogen,Urine <2.0 mg/dL (<2.0)
[2019-05-19 22:40] LABS: Basophils % (A) 0 %; Eosinophils # (A) 0.2 k/uL (0-0.7); Eosinophils % (A) 2 %; HCT 43.9 % (39.0-53.0); HGB 15.1 gm/dL (13.0-17.5); Lymphocytes # (A) 4.2 k/uL (1.0-4.8); Lymphocytes % (A) 48 %; MCH 28.2 pg (25.0-35.0); MCHC 34.3 g/dL (31.0-37.0); MCV 82.2 fL (80.0-100.0); Monocytes # (A) 0.6 k/uL (0-1.0); Monocytes % (A) 7 %; Neutrophils # (A) 3.5 k/uL (1.3-7.7); Neutrophils % (A) 40 %; Platelet Count 242 k/uL (150-450); RBC 5.35 m/uL (4.30-5.90); RDW 12.4 % (11.5-15.5); WBC 8.8 k/uL (3.8-10.6)
[2019-05-19 22:44] LABS: ALT 49 U/L (4-49); AST 38 U/L (17-59); African American GFR (CKD) >90 (>60 ml/min/1.73 sqM); Albumin 4.1 g/dL (3.5-5.0); Alkaline Phosphatase 105 U/L (38-126); Amylase 45 U/L (30-110); Anion Gap 10 mmol/L; Blood Urea Nitrogen 18 mg/dL (9-20); Calcium 9.7 mg/dL (8.4-10.2); Carbon Dioxide 20 mmol/L (22-30); Chloride 108 mmol/L (98-107); Glucose 148 mg/dL (74-99); Non-African American GFR(CKD) >90 (>60 ml/min/1.73 sqM); Potassium 3.9 mmol/L (3.5-5.1); Sodium 138 mmol/L (137-145); Total Bilirubin 0.5 mg/dL (0.2-1.3)
[2019-05-19] MEDS ORDERED: KETOROLAC 30 MG/ML 1 ML VIAL IVP STA (22:56)
--- NOTE | 2019-05-19 23:02 | XR ---
EXAMINATION TYPE: XR KUB DATE OF EXAM: 05/19/2019 COMPARISON: NONE HISTORY: Abdominal pain. 2 views upright There is no sign of intestinal obstruction or pneumoperitoneum. Fecal pattern is normal. Lung bases are clear. There are no pathologic calcifications. IMPRESSION: Nonacute abdomen.
[2019-05-19 23:16] VITALS: TEMP 97.6
[2019-05-20 00:30] VITALS: BP 110/60; PULSE 79; RESP 16
== END 2019-05-20 00:30 | disposition home or self-care (01) ==
LOC: EC 21:47
DX: R10.11 Right upper quadrant pain (principal); R14.2 Eructation; Z87.891 Personal history of nicotine dependence; Z53.20 Procedure and treatment not carried out because of patient's decision for unspecified reasons
CPT/HCPCS: 36415; 80053; 82150; 83690; 85025; 81003; 74018; 99284; 96374; 96375 ×2; 96361 ×2; J2405; J1885

== ENCOUNTER → 2019-06-23 | Outpatient (CLI) | payer OTHER ==
--- NOTE | 2019-06-23 20:32 | CONS ---
CONSULTATION DATE OF SERVICE: 06/23/2019 23-year-old gentleman who has been evaluated in the [facility] for possible obstructive sleep apnea-hypopnea syndrome. HISTORY OF PRESENT ILLNESS/SLEEP WAKE EVALUATION: SLEEP SCHEDULE: Patient's usual sleep schedule on working days from 8 p.m. until 3:30 am and on weekends from 9 p.m. to 8/11 am. FALLING ASLEEP: Sometimes he has problems with falling asleep. Has TV set in bedroom. DURING SLEEP: He usually sleeps on the side position with loud snoring and witnessed episodes of stopped breathing during sleep. The patient wakes up from sleep about 3 times with episodes of choking, grinding teeth, dry mouth, heartburn, gasping for air, restless legs. No history of hypnagogic hallucinations, sleep paralysis or cataplexy. DURING THE DAY/SLEEP WAKE EVALUATION: In the morning, patient wakes up tired, has difficulties to pay attention, White Owl Sleepiness Scale significantly increased to 14. The patient may take one nap in the middle of the day. Does not feel refreshed after naps and does not have vivid dreams during nap. PAST MEDICAL HISTORY: Basically negative. PAST SURGICAL HISTORY: Negative. MEDICATIONS: None. SOCIAL HISTORY: Negative for smoking. Alcohol consumption rarely. FAMILY HISTORY: Heart problems, hyperlipidemia, arthritis, asthma, snoring, diabetes, acid reflux, thyroid problems, restless legs. REVIEW OF SYSTEMS: Multiple awakenings from sleep, sleepiness during the day. PHYSICAL EXAM: gentleman without distress. BP 137/87, HR 94, RR 16, height 6 inches 2, weight 272.2, temperature 98.3. Oxygen saturation on room air 97%. Body mass index 34.9. Oropharynx extremely low position of soft palate, Mallampati 4. Small nasal passages. Wide neck 18-1/4 inches in circumference. Abdomen slightly obese. NECK: Wide neck. Supple, no JVD. Thyroid is not palpable. LUNGS: Clear to percussion and to auscultation. Good air exchange. No wheezing or rhonchi. HEART: S1, S2 regular. No murmurs, gallops, or rubs. ABDOMEN: Slightly obese. Soft and nontender. Bowel sounds are present. No organomegaly appreciated. EXTREMITIES: No clubbing or cyanosis. MARKETING RECRUITER: Awake, alert, and oriented X3. Cranial nerves 2 to 7 intact. There is no fasciculation or atrophy. noted. No focal deficits observed. IMPRESSION: 1. Snoring, witnessed episodes of stopped breathing during the sleep, extremely low position of soft palate. Mallampati 4. Wide neck. Sleepiness. Obstructive sleep apnea-hypopnea syndrome. 2. Excessive daytime sleepiness. White Owl Sleepiness Scale increased to 14. Differential diagnosis should include hypersomnia. Sleep study will be negative for obstructive sleep apnea-hypopnea syndrome. 3. Episodes of kicking at night and twitching leg possible periodic limb movement syndrome. PLAN: 1. Polysomnography for evaluation of patient's breathing during sleep. 2. CPAP/BiPAP titration if sleep study confirms obstructive sleep apnea-hypopnea syndrome. 3. Preferable position during sleep on the side. 4. No driving if patient feels any sleepiness. 5. I will see patient for follow up visit to explain results of testing and following plan. Jesus Garcia MD, PhD, FAASM Diplomat of [place] [employer] [place] [employer] [facility] [place] MMODL / JOSHUAN: [id number] /
== END | disposition home or self-care (01) ==
LOC: SLEEP 14:41
PROVIDERS: ATTEND Internal Medicine
DX: R06.83 Snoring (principal)
CPT/HCPCS: 99211

== ENCOUNTER 2019-08-14 07:47 | Emergency (ER) | payer OTHER ==
[2019-08-14 07:52] VITALS: RESP 16
[2019-08-14] MEDS ORDERED: SODIUM CHLORIDE 0.9% 1,000 ML IV STA (07:54)
[2019-08-14] MEDS ORDERED: ONDANSETRON 4 MG/2 ML VIAL IVP STA (07:54)
[2019-08-14 08:24] LABS: Basophils % (A) 0 %; Eosinophils # (A) 0.2 k/uL (0-0.7); Eosinophils % (A) 2 %; HCT 44.8 % (39.0-53.0); HGB 15.9 gm/dL (13.0-17.5); Lymphocytes # (A) 3.5 k/uL (1.0-4.8); Lymphocytes % (A) 44 %; MCH 28.2 pg (25.0-35.0); MCHC 35.5 g/dL (31.0-37.0); MCV 79.5 fL (80.0-100.0); Mean Platelet Volume 6.9; Monocytes # (A) 0.6 k/uL (0-1.0); Monocytes % (A) 7 %; Neutrophils # (A) 3.4 k/uL (1.3-7.7); Neutrophils % (A) 43 %; Platelet Count 267 k/uL (150-450); RBC 5.63 m/uL (4.30-5.90); RDW 12.4 % (11.5-15.5); WBC 7.9 k/uL (3.8-10.6)
[2019-08-14 08:25] LABS: ALT 35 U/L (4-49); AST 31 U/L (17-59); African American GFR (CKD) >90 (>60 ml/min/1.73 sqM); Albumin 4.5 g/dL (3.5-5.0); Alkaline Phosphatase 93 U/L (38-126); Anion Gap 11 mmol/L; Blood Urea Nitrogen 15 mg/dL (9-20); Calcium 9.6 mg/dL (8.4-10.2); Carbon Dioxide 22 mmol/L (22-30); Chloride 106 mmol/L (98-107); Glucose 121 mg/dL (74-99); Non-African American GFR(CKD) >90 (>60 ml/min/1.73 sqM); Potassium 4.2 mmol/L (3.5-5.1); Sodium 139 mmol/L (137-145); Total Bilirubin 0.7 mg/dL (0.2-1.3); Total Protein 7.6 g/dL (6.3-8.2)
[2019-08-14] MEDS ORDERED: MAG HYDROX/AL HYDROX/SIMETH 30 ML, HYOSCYAMINE ELIXIR 10 ML, LIDOCAINE VISCOUS 2% 10 ML PO STA ×3 (08:26)
[2019-08-14 08:30] LABS: Appearance,Urine Clear (Clear); Bilirubin,Urine Negative (Negative); Blood,Urine Negative (Negative); Color,Urine Yellow; Glucose,Urine (UA) Negative (Negative); Ketones,Urine Negative (Negative); Leukocyte Esterase,Urine Negative (Negative); Nitrite,Urine Negative (Negative); PH, Urine 5.5 (5.0-8.0); Protein,Urine Negative (Negative); Urobilinogen,Urine <2.0 mg/dL (<2.0)
--- NOTE | 2019-08-14 08:39 | XR ---
EXAMINATION TYPE: XR chest 1V portable DATE OF EXAM: 08/14/2019 HISTORY: abdominal pain. REFERENCE: Previous study dated 11/12/2017. FINDINGS: The lungs remain clear. Pleural spaces are clear. The heart is not enlarged. IMPRESSION: NO ACUTE INTRATHORACIC ABNORMALITY.
[2019-08-14] MEDS ORDERED: KETOROLAC 30 MG/ML 1 ML VIAL IVP STA (08:40)
--- NOTE | 2019-08-14 08:45 | ED ---
General Adult HPI - General Chief complaint: Abdominal Pain Stated complaint: Abd Pain Time Seen by Provider: 08/14/19 07:53 Source: patient Mode of arrival: ambulatory Limitations: no limitations - History of Present Illness Initial comments: Dictation was produced using [employer] dictation software. please excuse any grammatical, word or spelling errors. Chief Complaint: 24-year-old malewith past medical history presents with abdominal pain. History of Present Illness: 24-year-old male presents with abdominal pain. Patient states he's had this pain since yesterday. Patient has had episodes like this in the past. Patient has been seen by me personally for similar presentation. Patient has any nausea or vomiting. Denies any diarrhea. He states that the pain is periumbilical. No radiation. Patient denies any constitutional symptoms. Patient states the pain is worse with palpation. Symptoms are not very severe however causes him some discomfort. Patient tried to take some [id number] analgesia with no significant effect. Patient denies any pattern changes with healing intake. Patient was given referral to [facility] in the past. 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 The ROS documented in this emergency department record has been reviewed and confirmed by me. Those systems with pertinent positive or negative responses have been documented in the HPI. All other systems are other negative and/or noncontributory. PHYSICAL EXAM: General Impression: Alert and oriented x3, not in acute distress HEENT: Normocephalic atraumatic, extra-ocular movements intact, pupils equal and reactive to light bilaterally, mucous membranes moist. Cardiovascular: Heart regular rate and rhythm, S1&S2 audible, no murmurs, rubs or gallops Chest: Lungs clear to auscultation bilaterally, no rhonchi, no wheeze, no rales Abdomen: Bowel sounds present, abdomen soft, minimal tenderness to the periumbilical area, no rebound tenderness, no palpable tenderness at McBurney's point. Musculoskeletal: Pulses present and equal in all extremities, no peripheral edema Motor: no focal deficits noted Neurological: CN II-XII grossly intact, no focal motor or sensory deficits noted Skin: Intact with no visualized rashes Psych: Normal affect and mood ED course: 24-year-old male with no CVA. Past history presents with abdominal pain. All signs upon arrival shows findings within acceptable limits. Laboratory evaluation obtained. No leukocytosis. Metabolic panel is negative. Urinalysis is negative. At this point given clinical presentation of concern for surgical abdomen. X- rays were obtained. Chest x-ray and KUB x-ray shows no acute processes. Patient treated with GI cocktail and Toradol. Patient reevaluated with improvement of symptoms. At this point patient is stable for discharge. He is shifted to follow-up with GI doctor. Return primary discussed. Patient agreeable disposition. She prescription for Protonix. - Related Data Previous Rx's Medication Instructions Recorded Ibuprofen [Motrin] 800 mg PO TID #30 tab 01/03/19 Methocarbamol [Robaxin-750] 750 mg PO TID #30 tablet 01/03/19 Famotidine [Pepcid] 20 mg PO HS #30 tablet 05/19/19 Allergies Allergy/AdvReac Type Severity Reaction Status Date / Time No Known Allergies Allergy Verified 08/14/19 07:52 Review of Systems ROS Statement: Those systems with pertinent positive or pertinent negative responses have been documented in the HPI. ROS Other: All systems not noted in ROS Statement are negative. Past Medical History Past Medical History: No Reported History History of Any Multi-Drug Resistant Organisms: None Reported Past Surgical History: No Surgical Hx Reported Additional Past Surgical History / Comment(s): ingrown toenail Past Psychological History: Anxiety, Depression Smoking Status: Former smoker Past Alcohol Use History: Rare Past Drug Use History: None Reported General Exam Limitations: no limitations Course Vital Signs 08/14/19 07:50 Temperature 97.5 F L Pulse Rate 66 Respiratory 16 Rate Blood Pressure 142/100 O2 Sat by Pulse 99 Oximetry Medical Decision Making - Lab Data Result diagrams: 08/14/19 08:05 08/14/19 08:05 Lab Results 08/14/19 08/14/19 08/14/19 Range/Units 08:05 08:05 08:15 WBC 7.9 (3.8-10.6) k/uL RBC 5.63 (4.30-5.90) m/uL Hgb 15.9 (13.0-17.5) gm/dL Hct 44.8 (39.0-53.0) % MCV 79.5 L (80.0-100.0) fL MCH 28.2 (25.0-35.0) pg MCHC 35.5 (31.0-37.0) g/dL RDW 12.4 (11.5-15.5) % Plt Count 267 (150-450) k/uL Neutrophils % 43 % Lymphocytes % 44 % Monocytes % 7 % Eosinophils % 2 % Basophils % 0 % Neutrophils # 3.4 (1.3-7.7) k/uL Lymphocytes # 3.5 (1.0-4.8) k/uL Monocytes # 0.6 (0-1.0) k/uL Eosinophils # 0.2 (0-0.7) k/uL Basophils # 0.0 (0-0.2) k/uL Sodium 139 (137-145) mmol/L Potassium 4.2 (3.5-5.1) mmol/L Chloride 106 (98-107) mmol/L Carbon Dioxide 22 (22-30) mmol/L Anion Gap 11 mmol/L BUN 15 (9-20) mg/dL Creatinine 0.83 (0.66-1.25) mg/dL Est GFR (CKD-EPI)AfAm >90 (>60 ml/min/1.73 sqM) Est GFR (CKD-EPI)NonAf >90 (>60 ml/min/1.73 sqM) Glucose 121 H (74-99) mg/dL Calcium 9.6 (8.4-10.2) mg/dL Total Bilirubin 0.7 (0.2-1.3) mg/dL AST 31 (17-59) U/L ALT 35 (4-49) U/L Alkaline Phosphatase 93 (38-126) U/L Total Protein 7.6 (6.3-8.2) g/dL Albumin 4.5 (3.5-5.0) g/dL Lipase 114 (23-300) U/L Urine Color Yellow Urine Appearance Clear (Clear) Urine pH 5.5 (5.0-8.0) Ur Specific [place] 1.030 (1.001-1.035) Urine Protein Negative (Negative) Urine Glucose (UA) Negative (Negative) Urine Ketones Negative (Negative) Urine Blood Negative (Negative) Urine Nitrite Negative (Negative) Urine Bilirubin Negative (Negative) Urine Urobilinogen <2.0 (<2.0) mg/dL Ur Leukocyte Esterase Negative (Negative) Disposition Clinical Impression: Abdominal pain Disposition: HOME SELF-CARE Condition: Good Instructions (If sedation given, give patient instructions): Abdominal Pain (ED) Additional Instructions: Please seek medical care with development of worsening pain, fever, chills. Otherwise follow-up with GI doctor as instructed Is patient prescribed a controlled substance at d/c from ED?: No Referrals: Crow Mitchell MD [STAFF PHYSICIAN] - 1-2 days Time of Disposition: 09:36
--- NOTE | 2019-08-14 09:37 | ED ---
Medical Decision Making - Lab Data Result diagrams: 08/14/19 08:05 08/14/19 08:05 Lab Results 08/14/19 08/14/19 08/14/19 Range/Units 08:05 08:05 08:15 WBC 7.9 (3.8-10.6) k/uL RBC 5.63 (4.30-5.90) m/uL Hgb 15.9 (13.0-17.5) gm/dL Hct 44.8 (39.0-53.0) % MCV 79.5 L (80.0-100.0) fL MCH 28.2 (25.0-35.0) pg MCHC 35.5 (31.0-37.0) g/dL RDW 12.4 (11.5-15.5) % Plt Count 267 (150-450) k/uL Neutrophils % 43 % Lymphocytes % 44 % Monocytes % 7 % Eosinophils % 2 % Basophils % 0 % Neutrophils # 3.4 (1.3-7.7) k/uL Lymphocytes # 3.5 (1.0-4.8) k/uL Monocytes # 0.6 (0-1.0) k/uL Eosinophils # 0.2 (0-0.7) k/uL Basophils # 0.0 (0-0.2) k/uL Sodium 139 (137-145) mmol/L Potassium 4.2 (3.5-5.1) mmol/L Chloride 106 (98-107) mmol/L Carbon Dioxide 22 (22-30) mmol/L Anion Gap 11 mmol/L BUN 15 (9-20) mg/dL Creatinine 0.83 (0.66-1.25) mg/dL Est GFR (CKD-EPI)AfAm >90 (>60 ml/min/1.73 sqM) Est GFR (CKD-EPI)NonAf >90 (>60 ml/min/1.73 sqM) Glucose 121 H (74-99) mg/dL Calcium 9.6 (8.4-10.2) mg/dL Total Bilirubin 0.7 (0.2-1.3) mg/dL AST 31 (17-59) U/L ALT 35 (4-49) U/L Alkaline Phosphatase 93 (38-126) U/L Total Protein 7.6 (6.3-8.2) g/dL Albumin 4.5 (3.5-5.0) g/dL Lipase 114 (23-300) U/L Urine Color Yellow Urine Appearance Clear (Clear) Urine pH 5.5 (5.0-8.0) Ur Specific [place] 1.030 (1.001-1.035) Urine Protein Negative (Negative) Urine Glucose (UA) Negative (Negative) Urine Ketones Negative (Negative) Urine Blood Negative (Negative) Urine Nitrite Negative (Negative) Urine Bilirubin Negative (Negative) Urine Urobilinogen <2.0 (<2.0) mg/dL Ur Leukocyte Esterase Negative (Negative) Disposition Clinical Impression: Abdominal pain Disposition: HOME SELF-CARE Condition: Good Instructions (If sedation given, give patient instructions): Abdominal Pain (ED) Additional Instructions: Please seek medical care with development of worsening pain, fever, chills. Otherwise follow-up with GI doctor as instructed Prescriptions: Pantoprazole [Protonix] 40 mg PO DAILY #30 tablet.dr Is patient prescribed a controlled substance at d/c from ED?: No Referrals: Crow Mitchell MD [STAFF PHYSICIAN] - 1-2 days Time of Disposition: 09:37
--- NOTE | 2019-08-14 09:37 | XR ---
EXAMINATION TYPE: XR KUB , 2 VIEWS DATE OF EXAM ORDERED: 08/14/2019 HISTORY: abdominal pain. COMPARISON: Previous study dated 05/19/2019. FINDINGS: Lung bases are clear. Within the abdomen, the abdominal gas pattern is within normal limits. There is no evidence of obstru ction or free air. No unusual calcifications are seen. There is radiopaque foreign body overlying the greater trochanter on the right which has the appearance of a zipper. IMPRESSION: NO ACUTE INTRA-ABDOMINAL ABNORMALITY.
[2019-08-14 09:47] VITALS: BP 119/65; PULSE 81; TEMP 98
== END 2019-08-14 09:47 | disposition home or self-care (01) ==
LOC: EC 07:47
DX: R10.33 Periumbilical pain (principal); Z87.891 Personal history of nicotine dependence; Z53.20 Procedure and treatment not carried out because of patient's decision for unspecified reasons
CPT/HCPCS: 36415; 80053; 83690; 85025; 81003; 71045; 74018; 99284; 96374; 96361; J1885

== ENCOUNTER 2020-03-24 03:35 | Emergency (ER) | payer OTHER ==
[2020-03-24] MEDS ORDERED: IBUPROFEN 400 MG TAB PO STA (03:54)
--- NOTE | 2020-03-24 03:56 | ED ---
Extremity Problem HPI - General Chief complaint: Extremity Problem,Nontraumatic Stated complaint: LT heel pain Time Seen by Provider: 03/24/20 03:48 Source: patient Mode of arrival: wheelchair Limitations: no limitations - History of Present Illness MD Complaint: extremity pain Onset/Timin -: days(s) Location: left History of Same: No Quality: sharp Consistency: intermittent Improves with: rest Worsens with: weight bearing, walking, palpation Associated Symptoms: denies other symptoms - Related Data Previous Rx's Medication Instructions Recorded Ibuprofen [Motrin] 800 mg PO TID #30 tab 01/03/19 Methocarbamol [Robaxin-750] 750 mg PO TID #30 tablet 01/03/19 Famotidine [Pepcid] 20 mg PO HS #30 tablet 05/19/19 Pantoprazole [Protonix] 40 mg PO DAILY #30 tablet. 08/14/19 Ibuprofen 800 mg PO TID #20 tablet 03/24/20 Allergies Allergy/AdvReac Type Severity Reaction Status Date / Time No Known Allergies Allergy Verified 03/24/20 03:47 Review of Systems ROS Statement: Those systems with pertinent positive or pertinent negative responses have been documented in the HPI. ROS Other: All systems not noted in ROS Statement are negative. Constitutional: Denies: fever, chills Respiratory: Denies: dyspnea Cardiovascular: Denies: chest pain, palpitations Gastrointestinal: Denies: abdominal pain Musculoskeletal: Reports: as per HPI, other (left foot pain) Skin: Denies: rash Neurological: Denies: weakness, numbness, paresthesias Past Medical History Past Medical History: No Reported History History of Any Multi-Drug Resistant Organisms: None Reported Past Surgical History: No Surgical Hx Reported Additional Past Surgical History / Comment(s): ingrown toenail Past Psychological History: Anxiety, Depression Smoking Status: Never smoker Past Alcohol Use History: Rare Past Drug Use History: None Reported General Exam Limitations: no limitations General appearance: alert, in no apparent distress Head exam: Present: atraumatic, normocephalic Cardiovascular Exam: Present: other (normal capillary refill and normal pedal pulses) Neurological exam: Absent: motor sensory deficit Skin exam: Present: warm, dry, intact, normal color. Absent: rash, erythema Course Vital Signs 03/24/20 03:42 Temperature 97.4 F L Pulse Rate 75 Respiratory 18 Rate Blood Pressure 152/97 O2 Sat by Pulse 95 Oximetry Disposition Clinical Impression: Plantar fasciitis Disposition: HOME SELF-CARE Condition: Good Instructions (If sedation given, give patient instructions): Plantar Fasciitis (ED) Prescriptions: Ibuprofen 800 mg PO TID #20 tablet Is patient prescribed a controlled substance at d/c from ED?: No Referrals: None,Stated [Primary Care Provider] - 1-2 days
--- NOTE | 2020-03-24 04:20 | XR ---
EXAM: XR Left Foot Complete, 3 or More Views CLINICAL HISTORY: calcaneous pain TECHNIQUE: Frontal, lateral and oblique views of the left foot. COMPARISON: No relevant prior studies available. FINDINGS: Bones/joints: No acute fracture or malalignment. Small sclerotic focus in the anterior calcaneus. Soft tissues: No significant abnormality. No radiopaque foreign body. IMPRESSION: No acute fracture or malalignment.
[2020-03-24 04:45] VITALS: BP 145/85; PULSE 78; RESP 17; TEMP 98.4
== END 2020-03-24 04:43 | disposition home or self-care (01) ==
LOC: EC 03:35
DX: M72.2 Plantar fascial fibromatosis (principal)
CPT/HCPCS: 99283

== ENCOUNTER 2020-04-13 02:00 | Emergency (ER) | payer OTHER ==
--- NOTE | 2020-04-13 02:41 | ED ---
Alcohol HPI - General Chief Complaint: Alcohol Stated Complaint: ETOH Time Seen by Provider: 04/13/20 02:02 Source: patient, EMS Mode of arrival: EMS Limitations: no limitations - History of Present Illness Initial Comments: Patient is a 24-year-old man who presents with complaint that he is very intoxicated. The patient's partner had called ambulance after they were not able to get him up from the lawn where he had been lying down outside for over 30 minutes. I patient denies having any injury. He states that he was too intoxicated to walk. Patient denies complaints other than nausea MD Complaint: alcohol intoxication Last Drink: just [employer] Previous Visits for Alcohol Intoxication?: No Recent Trauma: No Associated Symptoms: nausea Chronic Alcohol Use: No - Related Data Previous Rx's Medication Instructions Recorded Ibuprofen [Motrin] 800 mg PO TID #30 tab 01/03/19 Methocarbamol [Robaxin-750] 750 mg PO TID #30 tablet 01/03/19 Famotidine [Pepcid] 20 mg PO HS #30 tablet 05/19/19 Pantoprazole [Protonix] 40 mg PO DAILY #30 tablet. 08/14/19 Ibuprofen 800 mg PO TID #20 tablet 03/24/20 Allergies Allergy/AdvReac Type Severity Reaction Status Date / Time No Known Allergies Allergy Verified 03/24/20 03:47 Review of Systems ROS Statement: Those systems with pertinent positive or pertinent negative responses have been documented in the HPI. ROS Other: All systems not noted in ROS Statement are negative. Constitutional: Denies: fever Respiratory: Denies: cough, dyspnea Cardiovascular: Denies: chest pain, palpitations Gastrointestinal: Reports: nausea. Denies: abdominal pain, vomiting, diarrhea, hematemesis Musculoskeletal: Denies: back pain Neurological: Denies: headache, weakness Past Medical History Past Medical History: No Reported History Additional Past Medical History / Comment(s): Plantar Fasciitis History of Any Multi-Drug Resistant Organisms: None Reported Past Surgical History: No Surgical Hx Reported Additional Past Surgical History / Comment(s): ingrown toenail Past Psychological History: Anxiety, Depression Smoking Status: Never smoker Past Alcohol Use History: Rare Past Drug Use History: Marijuana General Exam Limitations: no limitations General appearance: alert, in no apparent distress, appears intoxicated Head exam: Present: atraumatic, normocephalic, normal inspection Eye exam: Present: normal appearance, PERRL, EOMI, nystagmus. Absent: scleral icterus, conjunctival injection Neck exam: Present: normal inspection, full ROM. Absent: tenderness Respiratory exam: Present: normal lung sounds bilaterally. Absent: respiratory distress, wheezes, rales, rhonchi, stridor Cardiovascular Exam: Present: regular rate, normal rhythm, normal heart sounds. Absent: systolic murmur, diastolic murmur, rubs, gallop GI/Abdominal exam: Present: soft. Absent: distended, tenderness, guarding, saundra ound Extremities exam: Present: normal inspection Neurological exam: Present: alert, oriented X3 Skin exam: Present: warm, dry, intact, normal color. Absent: rash Course Vital Signs 04/13/20 04/13/20 04/13/20 02:01 03:20 04:45 Temperature 98.1 F 97.9 F 97.8 F Pulse Rate 85 86 88 Respiratory 16 16 18 Rate Blood Pressure 123/83 111/66 122/65 O2 Sat by Pulse 99 96 97 Oximetry 04/13/20 05:45 Temperature Pulse Rate 82 Respiratory 18 Rate Blood Pressure 118/68 O2 Sat by Pulse 98 Oximetry Disposition Clinical Impression: Alcoholic intoxication Disposition: HOME SELF-CARE Condition: Good Instructions (If sedation given, give patient instructions): Alcohol Intoxication (ED) Is patient prescribed a controlled substance at d/c from ED?: No Referrals: Nazario Jett MD [Primary Care Provider] - 1-2 days
[2020-04-13 06:03] VITALS: RESP 18; TEMP 97.8
[2020-04-13 06:05] VITALS: BP 118/68; PULSE 82
== END 2020-04-13 06:20 | disposition home or self-care (01) ==
LOC: EC 02:00
DX: F10.129 Alcohol abuse with intoxication, unspecified (principal)
CPT/HCPCS: 99284

== ENCOUNTER 2020-06-04 08:41 | Emergency (ER) | payer OTHER ==
[2020-06-04 08:45] VITALS: RESP 16
[2020-06-04] MEDS ORDERED: SODIUM CHLORIDE 0.9% 500 ML 500 ML IV STA (08:52)
[2020-06-04] MEDS ORDERED: SODIUM CHLORIDE 0.9% 1,000 ML IV STA (08:52)
[2020-06-04] MEDS ORDERED: ONDANSETRON 4 MG/2 ML VIAL IVP STA (08:52)
[2020-06-04] MEDS ORDERED: DICYCLOMINE 10 MG/ML 2 ML AMP IM STA (08:52)
[2020-06-04] MEDS ORDERED: FAMOTIDINE 20 MG/2 ML VIAL IV STA (08:52)
--- NOTE | 2020-06-04 08:55 | ED ---
General Adult HPI - General Chief complaint: Nausea/Vomiting/Diarrhea Stated complaint: Diarrhea Time Seen by Provider: 06/04/20 08:46 Source: patient, RN notes reviewed Mode of arrival: ambulatory Limitations: no limitations - History of Present Illness Initial comments: Patient is a pleasant 24-year-old male presenting to the emergency Department with complaints of diarrhea. Onset of symptoms was yesterday. Patient had around 7 episodes yesterday and one or 2 today. Patient has had some minimal nausea, patient did vomit once today. Patient has tried to drink more water however does feel dehydrated. Patient occasionally has abdominal cramping, none at this time. No fevers. No upper respiratory symptoms - Related Data Previous Rx's Medication Instructions Recorded Dicyclomine [Bentyl] 20 mg PO QID #15 tablet 06/04/20 Allergies Allergy/AdvReac Type Severity Reaction Status Date / Time No Known Allergies Allergy Verified 06/04/20 09:19 Review of Systems ROS Statement: Those systems with pertinent positive or pertinent negative responses have been documented in the HPI. ROS Other: All systems not noted in ROS Statement are negative. Constitutional: Denies: fever Eyes: Denies: eye pain ENT: Denies: ear pain, throat pain, congestion Respiratory: Denies: cough Cardiovascular: Denies: chest pain Endocrine: Denies: fatigue Gastrointestinal: Reports: as per HPI, vomiting, diarrhea Musculoskeletal: Denies: back pain Skin: Denies: rash Neurological: Denies: weakness Past Medical History Past Medical History: No Reported History Additional Past Medical History / Comment(s): Plantar Fasciitis History of Any Multi-Drug Resistant Organisms: None Reported Past Surgical History: No Surgical Hx Reported Additional Past Surgical History / Comment(s): ingrown toenail Past Psychological History: Anxiety, Depression Smoking Status: Never smoker Past Alcohol Use History: Rare Past Drug Use History: Marijuana General Exam Limitations: no limitations General appearance: alert, in no apparent distress Head exam: Present: normocephalic Eye exam: Present: normal appearance Neck exam: Present: normal inspection Respiratory exam: Present: normal lung sounds bilaterally Cardiovascular Exam: Present: regular rate, normal rhythm GI/Abdominal exam: Present: soft. Absent: distended, tenderness, guarding, rebound, rigid, pulsatile mass Extremities exam: Present: normal inspection. Absent: pedal edema, calf tenderness Neurological exam: Present: alert Psychiatric exam: Present: normal affect, normal mood Skin exam: Present: normal color Course Vital Signs 06/04/20 08:43 Temperature 99.4 F Pulse Rate 83 Respiratory 16 Rate Blood Pressure 143/87 O2 Sat by Pulse 96 Oximetry Medical Decision Making - Medical Decision Making Patient reevaluated and resting comfortably in bed, feeling somewhat better. Patient updated on results and need for follow-up. Patient requests work note for today. - Lab Data Result diagrams: 06/04/20 09:15 06/04/20 09:15 Lab Results 06/04/20 06/04/20 06/04/20 Range/Units 09:15 09:15 09:15 WBC 8.0 (3.8-10.6) k/uL RBC 5.49 (4.30-5.90) m/uL Hgb 15.8 (13.0-17.5) gm/dL Hct 46.0 (39.0-53.0) % MCV 83.9 (80.0-100.0) fL MCH 28.8 (25.0-35.0) pg MCHC 34.4 (31.0-37.0) g/dL RDW 12.6 (11.5-15.5) % Plt Count 262 (150-450) k/uL MPV 7.1 Neutrophils % 48 % Lymphocytes % 39 % Monocytes % 7 % Eosinophils % 3 % Basophils % 1 % Neutrophils # 3.9 (1.3-7.7) k/uL Lymphocytes # 3.1 (1.0-4.8) k/uL Monocytes # 0.6 (0-1.0) k/uL Eosinophils # 0.2 (0-0.7) k/uL Basophils # 0.0 (0-0.2) k/uL PT 9.9 (9.0-12.0) sec INR 0.9 (<1.2) APTT 23.8 (22.0-30.0) sec Sodium 139 (137-145) mmol/L Potassium 4.1 (3.5-5.1) mmol/L Chloride 108 H (98-107) mmol/L Carbon Dioxide 24 (22-30) mmol/L Anion Gap 7 mmol/L BUN 15 (9-20) mg/dL Creatinine 0.88 (0.66-1.25) mg/dL Est GFR (CKD-EPI)AfAm >90 (>60 ml/min/1.73 sqM) Est GFR (CKD-EPI)NonAf >90 (>60 ml/min/1.73 sqM) Glucose 124 H (74-99) mg/dL Calcium 9.6 (8.4-10.2) mg/dL Total Bilirubin 0.5 (0.2-1.3) mg/dL AST 29 (17-59) U/L ALT 40 (4-49) U/L Alkaline Phosphatase 70 (38-126) U/L Total Protein 7.1 (6.3-8.2) g/dL Albumin 4.2 (3.5-5.0) g/dL Amylase 48 (30-110) U/L Lipase 51 (23-300) U/L - Radiology Data Radiology results: image reviewed (Abdominal x-ray reveals no acute process) Disposition Clinical Impression: Diarrhea Disposition: HOME SELF-CARE Condition: Stable Instructions (If sedation given, give patient instructions): Acute Diarrhea (ED), Acute Nausea and Vomiting (ED) Additional Instructions: Please follow-up with primary care physician in the next couple days for recheck. Prescription for Bentyl has been sent to your pharmacy. [facility]. Return for fevers, uncontrolled vomiting, increased pain, worsening symptoms or other concerns or not tolerating oral intake. Prescriptions: Dicyclomine [Bentyl] 20 mg PO QID #15 tablet Is patient prescribed a controlled substance at d/c from ED?: No Referrals: Nazario Jett MD [Primary Care Provider] - 1-2 days Time of Disposition: 10:13
[2020-06-04 09:22] LABS: Basophils % (A) 1 %; Eosinophils # (A) 0.2 k/uL (0-0.7); Eosinophils % (A) 3 %; HGB 15.8 gm/dL (13.0-17.5); Lymphocytes # (A) 3.1 k/uL (1.0-4.8); Lymphocytes % (A) 39 %; MCH 28.8 pg (25.0-35.0); MCHC 34.4 g/dL (31.0-37.0); MCV 83.9 fL (80.0-100.0); Mean Platelet Volume 7.1; Monocytes # (A) 0.6 k/uL (0-1.0); Monocytes % (A) 7 %; Neutrophils # (A) 3.9 k/uL (1.3-7.7); Neutrophils % (A) 48 %; Platelet Count 262 k/uL (150-450); RBC 5.49 m/uL (4.30-5.90); RDW 12.6 % (11.5-15.5)
[2020-06-04 09:31] LABS: ALT 40 U/L (4-49); AST 29 U/L (17-59); African American GFR (CKD) >90 (>60 ml/min/1.73 sqM); Albumin 4.2 g/dL (3.5-5.0); Alkaline Phosphatase 70 U/L (38-126); Amylase 48 U/L (30-110); Anion Gap 7 mmol/L; Blood Urea Nitrogen 15 mg/dL (9-20); Calcium 9.6 mg/dL (8.4-10.2); Carbon Dioxide 24 mmol/L (22-30); Chloride 108 mmol/L (98-107); Glucose 124 mg/dL (74-99); Lipase 51 U/L (23-300); Non-African American GFR(CKD) >90 (>60 ml/min/1.73 sqM); Potassium 4.1 mmol/L (3.5-5.1); Sodium 139 mmol/L (137-145); Total Bilirubin 0.5 mg/dL (0.2-1.3); Total Protein 7.1 g/dL (6.3-8.2)
[2020-06-04 09:34] LABS: INR 0.9 (<1.2); Partial Thromboplastin Time 23.8 sec (22.0-30.0); Prothrombin Time 9.9 sec (9.0-12.0)
--- NOTE | 2020-06-04 09:43 | XR ---
KUB HISTORY: Diarrhea and vomiting Frontal KUB and 2 images correlated prior exam 08/14/2019 lung bases are clear. There is no evident bowel obstruction or pneumoperitoneum. There is a slight sp inal curvature. No pathologic calcifications. IMPRESSION: No acute abnormality
[2020-06-04 10:37] VITALS: BP 138/86; PULSE 78; TEMP 98.4
== END 2020-06-04 10:40 | disposition home or self-care (01) ==
LOC: EC 08:41
DX: R19.7 Diarrhea, unspecified (principal); R11.2 Nausea with vomiting, unspecified
CPT/HCPCS: 99284; 96372; 96374; 96375; 96361; 36415; 80053; 82150; 83690; 85025; 85610; 85730; 74018; J0500; J2405

== ENCOUNTER 2020-06-30 14:48 | Inpatient (IN) | payer MEDICAID, OTHER ==
--- NOTE | 2020-06-30 15:06 | ED ---
General Adult HPI - General Chief complaint: Psychiatric Symptoms Stated complaint: Mental Health Time Seen by Provider: 06/30/20 14:56 Source: patient Mode of arrival: ambulatory Limitations: no limitations - History of Present Illness Initial comments: Dictation was produced using [employer] dictation software. please excuse any grammatical, word or spelling errors. This patient was cared for during a federal and state declared state of emergency secondary to Covid 19 Chief Complaint: 24-year-old male presents with suicidal ideation History of Present Illness: [id number] male he has been feeling very stressed out recently. He presents today with suicidal ideation. Patient states that he wants to go home and sit into the water and throwing the electrical appliances in the water as an attempt to harm himself. Patient states he's been seeing his grandmothers injury himself and that he is a discitis. Patient denies any suicidal attempt. He denies admission into inpatient psychiatry. He denies any psychiatric history. Does not take any psychiatric medications. The ROS documented in this emergency department record has been reviewed and confirmed by me. Those systems with pertinent positive or negative responses have been documented in the HPI. All other systems are other negative and/or noncontributory. PHYSICAL EXAM: General Impression: Alert and oriented x3, not in acute distress HEENT: Normocephalic atraumatic, extra-ocular movements intact, pupils equal and reactive to light bilaterally, mucous membranes moist. Cardiovascular: Heart regular rate and rhythm Chest: Able to complete full sentences, no retractions, no tachypnea Abdomen: abdomen soft, non-tender, non-distended, no organomegaly Musculoskeletal: Pulses present and equal in all extremities, no peripheral edema Motor: no focal deficits noted Neurological: CN II-XII grossly intact, no focal motor or sensory deficits noted Skin: Intact with no visualized rashes Psych: Normal affect and mood ED course: 24-year-old male presents with suicidal ideation. Signs upon arrival are within acceptable limits. Patient is no medical complaints. Physical examination is benign. Patient medically cleared for psychiatric evaluation by EPS nurse. Patient evaluated by EPS and be admitted to inpatient psychiatry. - Related Data Home Medications Medication Instructions Recorded Confirmed Ibuprofen [Motrin] 600 mg PO TID PRN 06/30/20 06/30/20 Allergies Allergy/AdvReac Type Severity Reaction Status Date / Time No Known Allergies Allergy Verified 06/30/20 16:37 Review of Systems ROS Statement: Those systems with pertinent positive or pertinent negative responses have been documented in the HPI. ROS Other: All systems not noted in ROS Statement are negative. Past Medical History Past Medical History: No Reported History Additional Past Medical History / Comment(s): Plantar Fasciitis History of Any Multi-Drug Resistant Organisms: None Reported Past Surgical History: No Surgical Hx Reported Additional Past Surgical History / Comment(s): ingrown toenail, wisdom teeth Past Psychological History: Anxiety, Depression Smoking Status: Never smoker Past Alcohol Use History: Rare Past Drug Use History: Marijuana General Exam Limitations: no limitations Course Vital Signs 06/30/20 14:49 Temperature 97.8 F Pulse Rate 98 Respiratory 20 Rate Blood Pressure 172/106 O2 Sat by Pulse 99 Oximetry Medical Decision Making - Lab Data Lab Results 06/30/20 06/30/20 Range/Units 15:20 15:20 Urine Opiates Screen Not Detected (NotDetected) Ur Oxycodone Screen Not Detected (NotDetected) Urine Methadone Screen Not Detected (NotDetected) Ur Propoxyphene Screen Not Detected (NotDetected) Ur Barbiturates Screen Not Detected (NotDetected) U Tricyclic Antidepress Not Detected (NotDetected) Ur Phencyclidine Scrn Not Detected (NotDetected) Ur Amphetamines Screen Not Detected (NotDetected) U Methamphetamines Scrn Not Detected (NotDetected) U Benzodiazepines Scrn Detected H (NotDetected) Urine Cocaine Screen Not Detected (NotDetected) U Marijuana (THC) Screen Not Detected (NotDetected) Coronavirus (PCR) Not Detected (Not Detectd) Disposition Clinical Impression: Suicidal behavior Disposition: ADMITTED IP TO THIS HOSP Condition: Fair Referrals: Nazario Jett MD [Primary Care Provider] - 1-2 days Decision Time: 17:31
[2020-06-30 15:43] LABS: Amphetamine Screen,Urine Not Detected (NotDetected); Barbiturate Screen,Urine Not Detected (NotDetected); Benzodiazepines Screen,Urine Detected (NotDetected); Cocaine Screen,Urine Not Detected (NotDetected); Methadone Screen, Urine Not Detected (NotDetected); Opiate Screen,Urine Not Detected (NotDetected); Oxycodone Screen, Urine Not Detected (NotDetected); Phencyclidine Screen,Urine Not Detected (NotDetected); Tricyclic Antidepressant,Urine Not Detected (NotDetected); Urn Cannabinoid Scrn Not Detected (NotDetected)
[2020-06-30] MEDS ORDERED: IBUPROFEN 400 MG TAB PO STA (17:07)
[2020-06-30 17:45] VITALS: RESP 16
[2020-06-30] MEDS ORDERED: LORazepam 1 MG TAB PO PRN (17:46)
[2020-06-30] MEDS ORDERED: MAGNESIUM HYDROXIDE 2,400 MG/10 ML CUP PO PRN (17:46)
[2020-06-30] MEDS ORDERED: ACETAMINOPHEN TAB 325 MG TAB PO PRN (17:46)
[2020-06-30] MEDS ORDERED: MAG HYDROX/AL HYDROX/SIMETH 30 ML CUP PO PRN (17:46)
[2020-06-30] MEDS ORDERED: LORazepam 2 MG/ML INJ IM PRN (17:54)
[2020-06-30] MEDS ORDERED: HALOPERIDOL LACTATE 5 MG/ML 1 ML VIAL IM PRN (17:55)
[2020-06-30] MEDS ORDERED: haloperidoL 5 MG TAB PO PRN (17:56)
[2020-07-01] MEDS ORDERED: LORazepam 0.5 MG TAB PO PRN (09:10)
[2020-07-01] MEDS: SERTRALINE 50 MG TAB PO SCH (09:45)
[2020-07-01 21:10] LABS: Hemoglobin A1C 5.3 % (4.0-6.0)
--- NOTE | 2020-07-02 00:44 | P.MDCNMH ---
History of Present Illness H&P Date: 07/01/20 Chief Complaint: Suicidal ideation. Patient is a 24-year-old male with a known history of anxiety/depression currently not on any medications presents to ER due to suicidal ideation. Patient states that he has been feeling very stressed out recently suicidal ideations. Patient states that he wants to go home and sit into the water and doing the elliptical (no water as an attempt to harm himself. Patient states that he has been seeing his grandmothers and injured himself. Denies any fever or chills. No recent illnesses. No chest pain or shortness of breath. No cough or sputum production. No recent travel. UDS is positive for benzodiazepines. Coronavirus PCR is negative. LDL 144 and TSH 1.02 Currently patient is awake alert and oriented. Denies any suicidal ideation. Patient does have history of marijuana use Review of Systems Constitutional: Patient denies any fever or chills . No generalized weakness or weight loss. Abdomen: Patient denied nausea vomiting and diarrhea and abdominal pain. Cardiovascular: Patient denies any chest pain or short of breath no palpitations. Respiratory: patient denied any cough or sputum production. No shortness of breath Neurologic: Patient denied any numbness or tingling headache. Musculoskeletal: Patient denies any complaints of joint swelling or deformity. Skin: Negative Psychiatric: Negative Endocrine: No heat or cold intolerance. No recent weight gain. Genitourinary: No dysuria or hematuria. All other 14 point ROS negative except the above Past Medical History Past Medical History: No Reported History Additional Past Medical History / Comment(s): Plantar Fasciitis History of Any Multi-Drug Resistant Organisms: None Reported Past Surgical History: No Surgical Hx Reported Additional Past Surgical History / Comment(s): ingrown toenail, wisdom teeth Past Psychological History: Anxiety, Depression Smoking Status: Never smoker Past Alcohol Use History: Rare Past Drug Use History: Marijuana Medications and Allergies Home Medications Medication Instructions Recorded Confirmed Type Ibuprofen [Motrin] 600 mg PO TID PRN 06/30/20 06/30/20 History Allergies Allergy/AdvReac Type Severity Reaction Status Date / Time No Known Allergies Allergy Verified 06/30/20 16:37 Physical Exam Vitals: Vital Signs Temp Pulse Pulse Resp BP BP Pulse Ox 07/01/20 06:36 97.5 F L 80 16 134/75 06/30/20 17:44 98.1 F 99 16 158/74 97 06/30/20 14:49 97.8 F 98 20 172/106 99 PHYSICAL EXAMINATION: Patient is lying in the bed comfortably, no acute distress, awake alert and oriented.. HEENT: Normocephalic. Neck is supple. Pupils reactive. Nostrils clear. Oral cavity is moist. Ears reveal no drainage. Neck reveals no JVD, carotid bruits, or thyromegaly. CHEST EXAMINATION: Trachea is central. Symmetrical expansion. Lung person clear to auscultation and percussion. CARDIAC: Normal S1, S2 with no gallops. No murmurs ABDOMEN: Soft. Bowel sounds normal. No organomegaly. No abdominal bruits. Extremities: reveal no edema. No clubbing or cyanosis Neurologically awake, alert, oriented x3 with well-coordinated movements. No focal deficits noted Skin: No rash or skin lesions. Psychiatric: Coperative. Nonsuicidal Musculoskeletal: No joint swelling or deformity. Normal range of motion. Cranial Nerve Examination - Cranial Nerves Cranial Nerve I- Olfactory: Intact Cranial Nerve II- Optic: Intact Cranial Nerve III- Oculomotor: Intact Cranial Nerve IV- Trochlear: Intact Cranial Nerve V- Trigeminal: Intact Cranial Nerve - Abducens: Intact Cranial Nerve VII- Facial: Intact Cranial Nerve VIII- Auditory: Intact Cranial Nerve IX- Glossopharyngeal: Intact Cranial Nerve X- Vagus: Intact Cranial Nerve XI- Accessory: Intact Cranial Nerve XII- Hypoglossal: Intact Results Labs: Abnormal Lab Results - Last 24 Hours (Table) 06/30/20 07/01/20 Range/Units 15:20 09:18 Triglycerides 286 H (<150) mg/dL Cholesterol 229 H (<200) mg/dL LDL Cholesterol, Calc 144 H (0-99) mg/dL HDL Cholesterol 28 L (40-60) mg/dL U Benzodiazepines Scrn Detected H (NotDetected) Assessment and Plan Assessment: Acute suicidal ideation with a plan. Major depression Marijuana use Hyperlipidemia with LDL 144 DVT prophylaxis with early ambulation Plan: Patient will be continued current psychiatric management and plan. Patient can be started statins upon discharge. Lifestyle modification was recommended. w ill continue to follow and further recommendations based on clinical course. Thank you for your consult. Time with Patient: Greater than 30
--- NOTE | 2020-07-02 08:11 | P.HP ---
Psychiatric H&P - . H&P Date: 07/01/20 History & Physical: IDENTIFYING DATA: Edwin is a 24-year-old male admitted to the psychiatric unit voluntarily with complaints of anxiety, depression as well as auditory and visual hallucinations. HISTORY OF PRESENT ILLNESS: Reviewed the medical record and interviewed the patient. He is a reliable historian and was open to providing information about his present and past history. He described increasing anxiety has been building over the last 12 months but is worse over the last several weeks. He thought that he was managing the anxiety until a week ago when he began "seeing" his grandparents. On the day of admission his partner brought him to the emergency room because he began to hear his grandparents talking to him and telling him that he is a "disappointment." He described vivid visual hallucinations of his grandparents. His description of the experience appears to represent a true or visual experience. Similarly, his description of the auditory experiences suggests a true auditory experience s. However, He denied a history of auditory or visual hallucinations. He denied that these experiences were accompanied by schneiderian first rank symptoms such as thought insertion, thought broadcasting, thought control. He denied experiencing ideas reference or paranoia. He did not described paranoid delusional thoughts, ideation or beliefs. He primarily described subjective anxiety experience including persistent worrying, restlessness, feeling tense and anxious. He minimized the somatic symptoms of anxiety such as sweating, shortness of breath, dry mouth, abdominal discomfort, diarrhea or constipation. He denied that he is experiencing discrete episodes of anxiety that built up to a crescendo suggestive of panic attack. He denied experiencing obsessions or compulsions. He focused on work as the major source of his anxiety and distress. 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 He has been performing frontline work because of staff shortages. His frustrations include limited authority over harming. A recent incident that caused him the most distressed occurred when a unruly customer called him a "fake it". He denied problems with alcohol or drugs. Last use alcohol in 2019. He denied use of drugs including marijuana. His UDS on admission to the ER was positive for benzodiazepines. PAST PSYCHIATRIC HISTORY: This is his first psychiatric hospitalization. He denied history of psychiatric or mental health treatment. PAST MEDICAL HISTORY: He has a history of obstructive sleep apnea. He is had several presentations to the emergency room for complaints that could be related to anxiety including chest pain, nausea, vomiting and abdominal pain. ALLERGIES: NO KNOWN DRUG ALLERGIES SUBSTANCE USE HISTORY:History of substance use problems or substance abuse treatment. FAMILY PSYCHIATRIC/SUBSTANCE USE HISTORY: He is unaware of family history of mental health or substance use problems. LEGAL HISTORY: He denied a history of legal problems. SOCIAL HISTORY: He was born and raised in intact family. He has one older brother. He graduated from high school. He attended [employer] but did not earn a great degree. He currently lives with his . They've been together for 7 years and for 2 years. He describes conflict with his family due to his homosexuality. He is only recently reconciling with his parents but remained has a distant and conflictual relationship with his older brother who does not approve his homosexuality. He also described financial problems where his and his partner's incomes barely cover personal expenses. MENTAL STATUS EXAM: He presented as a tall moderately obese 24-year-old male who was pleasant on approach. He made eye contact and attended to interview. He had no distinguishing features or prominent physical abnormalities. He had a anxious facial expression. He was alert and oriented to person, place and time. He was restless throughout the interview and was frequently wringing his hands. His speech was spontaneous with normal rate, volume and rhythm. His affect was dysphoric, depressed and anxious. He denied suicidal ideation and wishes. He denied homicidal ideation. He expressed feelings of hopelessness, helplessness but not worthlessness. He obsessed over his work stress and ruminated about his apparent visual and auditory hallucinations. He did not express ideas reference, paranoid ideation or delusions. His thinking was abstract and associations were coherent, logical and goal directed. He did not express clang associations, perseverations or neologisms. He described visual and auditory hallucinations/illusions. He also had episodes of depersonalization and derealization. Global impression of intellect is above average. He has awareness or understanding of his illness and need for treatment. STRENGTHS: Supportive interpersonal relationship, gainful employment, stable housing, lack of alcohol or drug use problems. WEAKNESSES: Chronic employment stress, financial problems IMPRESSION: 24-year-old male who presents to the psychiatric unit with symptoms of depression, anxiety and apparent visual and auditory hallucinations. He has prominent symptoms of anxiety that has interfered Jethro ability to function. In addition he is described depressive symptoms the most prominent of which is anhedonia. He has recently been experiencing it appears to be auditory and visual hallucinations that are not accompanied by other hallmarks of a psychotic disorder such as thought disturbances, paranoia or delusional thinking. I suspect that his symptoms are the result of a depressive illness with Roland anxious distress and not result of a primary psychotic illness. Of course, would have to rule out a psychotic affective disorder. PRINCIPLE DIAGNOSIS: Major depressive disorder severe with anxious distress, rule out major depressive disorder with psychotic features, rule out bipolar disorder current episode depressed, rule out schizoaffective disorder depressed type RECOMMENDATION: Admitted to the psychiatric unit. Safety precautions. Consult medicine for initial physical exam and medical history. 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 Begin Zoloft 50 mg daily and titrated clinical response and tolerance. Consider trial of a second generation antipsychotic if psychotic symptoms did not resolve for treatment with antidepressant. Ativan 0.5 mg 3 times a day when necessary for anxiety or Ativan 1 mg IM for some fear anxiety or agitation. Haldol 5 mg by mouth/IM when necessary for agitation or acute psychosis. Encourage participation in therapeutic groups and activities. Evaluate clinical status response to treatment daily basis. Allergies Allergy/AdvReac Type Severity Reaction Status Date / Time No Known Allergies Allergy Verified 06/30/20 16:37 Vital Signs Temp 97.5 F L 07/01/20 06:36 Pulse 80 07/01/20 06:36 Resp 16 07/01/20 06:36 BP 134/75 07/01/20 06:36 Pulse Ox 97 06/30/20 17:44 Intake & Output 06/30/20 07/01/20 07/01/20 18:59 06:59 18:59 Weight 121.109 kg Laboratory Last Values Urine Opiates Screen Not Detected (NotDetected) 06/30/20 15:20 Ur Oxycodone Screen Not Detected (NotDetected) 06/30/20 15:20 Urine Methadone Screen Not Detected (NotDetected) 06/30/20 15:20 Ur Propoxyphene Screen Not Detected (NotDetected) 06/30/20 15:20 Ur Barbiturates Screen Not Detected (NotDetected) 06/30/20 15:20 U Tricyclic Antidepress Not Detected (NotDetected) 06/30/20 15:20 Ur Phencyclidine Scrn Not Detected (NotDetected) 06/30/20 15:20 Ur Amphetamines Screen Not Detected (NotDetected) 06/30/20 15:20 U Methamphetamines Scrn Not Detected (NotDetected) 06/30/20 15:20 U Benzodiazepines Scrn Detected (NotDetected) H 06/30/20 15:20 Urine Cocaine Screen Not Detected (NotDetected) 06/30/20 15:20 U Marijuana (THC) Screen Not Detected (NotDetected) 06/30/20 15:20 Coronavirus (PCR) Not Detected (Not Detectd) 06/30/20 15:20 07/01/20 09:16
[2020-07-02] MEDS: SERTRALINE 50 MG TAB PO SCH (08:39)
--- NOTE | 2020-07-02 12:10 | P.PN ---
Progress Note - Text Progress Note Date: 07/02/20 Clinical Problems: Major depressive disorder severe with anxious distress, cannabis use disorder mild Interim history: I reviewed the medical record and interviewed the patient. He reported decrease in anxiety and slight improvement in his mood since admission to the unit. He specifically denied that he has been seeing his grandparents or hearing the voices. He attributes the improvement in his mood and anxiety to the therapeutic experiences on the unit. He experienced some sedation with Zoloft. He is not used to requested Ativan for anxiety. He remains interested in outpatient therapy. Medicine consult appreciated. Mental status exam: He presented as a casually groomed tall male who was pleasant on approach. He made eye contact and attended the interview. He had no distinguishing features or prominent physical abnormalities. He had a sad facial expression. He was not restless during the interview and was not wringing his hands. His speech was spontaneous with normal rate and rhythm. His affect was depressed, anxious and slightly reactive. He denied suicidal ideation and wishes. He feels much less hopeless, helpless and worthless admission. He did not express ideas reference, paranoid ideation or delusions. He denied experiencing auditory or visual hallucinations and did not appear to responding to internal stimuli. Assessment: He appears less anxious and distressed and on admission. The psychotic experiences appear to have subsided with the decline in his anxiety and depression. Plan: Continue inpatient treatment. Safety precautions. Continue Zoloft 50 mg daily and titrated according to clinical response and tolerance. Continue Ativan when necessary for agitation or anxiety. head worker to assist with referral for outpatient individual therapy.
[2020-07-03 07:26] VITALS: BP 141/78; PULSE 63; TEMP 98.1
[2020-07-03] MEDS: SERTRALINE 50 MG TAB PO SCH (08:14)
--- NOTE | 2020-07-03 10:19 | P.DS ---
Providers Date of admission: 06/30/20 17:44 Expected date of discharge: 07/03/20 Attending physician: Lowell Jauregui MD Consults: 06/30/20 17:46 Consult Physician Routine Consulting Provider: Ej Smith Consult Reason/Comments: medical management Do you want consulting provider notified?: Yes Primary care physician: Johnie Lange - Discharge Diagnosis(es) (1) Major depressive disorder, recurrent episode with anxious distress Current Visit: Yes Status: Acute Hospital Course: Admission HPI: Initial psychiatric evaluation was completed by Dr. Jarrell on 07/01/2020 who wrote: "Edwin is a 24-year-old male admitted to the psychiatric unit voluntarily with complaints of anxiety, depression as well as auditory and visual hallucinations. Reviewed the medical record and interviewed the patient. He is a reliable historian and was open to providing information about his present and past history. He described increasing anxiety has been building over the last 12 months but is worse over the last several weeks. He thought that he was managing the anxiety until a week ago when he began "seeing" his grandparents. On the day of admission his partner brought him to the emergency room because he began to hear his grandparents talking to him and telling him that he is a "disappointment." He described vivid visual hallucinations of his grandparents. His description of the experience appears to represent a true or visual experience. Similarly, his description of the auditory experiences suggests a true auditory experiences. However, He denied a history of auditory or visual hallucinations. He denied that these experiences were accompanied by schneiderian first rank symptoms such as thought insertion, thought broadcasting, thought control. He denied experiencing ideas reference or paranoia. He did not described paranoid delusional thoughts, ideation or beliefs. He primarily described subjective anxiety experience including persistent worrying, restlessness, feeling tense and anxious. He minimized the somatic symptoms of anxiety such as sweating, shortness of breath, dry mouth, abdominal discomfort, diarrhea or constipation. He denied that he is experiencing discrete episodes of anxiety that built up to a crescendo suggestive of panic attack. He denied experiencing obsessions or compulsions. He focused on work as the major source of his anxiety and distress. 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 He has been performing frontline work because of staff shortages. His frustrations include limited authority over harming. A recent incident that caused him the most distressed occurred when a unruly customer called him a "fake it". He denied problems with alcohol or drugs. Last use alcohol in 2019. He denied use of drugs including marijuana. His UDS on admission to the ER was positive for benzodiazepines." Hospital course: Upon admission to the unit patient was initially presenting with significant anxiety, depression, in the context of work and other related stress. Patient was however directable and agreeable to commence treatment. The patient was started on Zoloft for management of depression and anxiety. The patient did endorse some hallucinations but on further exploration, these hallucinations appeared to be secondary to his mood disorder and are not accompanied by other hallmarks of a psychotic disorder such as thought disturbances, paranoia, or delusional thinking. The patient also explained that his auditory monzon ucinations were more of an internal dialogue in his head. Over the course of the hospitalization, the patient was adherent with his medications, per to spend in milieu activities, and became more future oriented. As it was his first time in an inpatient psychiatric unit, the patient didn't endorse elevated anxiety due to his new surroundings. On the day of discharge, the patient is not reporting any suicidal or homicidal ideation, intention, and/or plan. He is not reporting any auditory or visualizations. He is denying any paranoia or delusions. He has been adherent with his medications and is not reporting any significant side effects. He denies any firearms or other weapons. The patient does have significant history of substance abuse however was counseled on avoiding all substances including alcohol and marijuana. The patient expresses future orientation and is eager to continue his treatment in the outpatient setting. The patient was counseled on the medications and need for regular compliance and was encouraged to follow-up outpatient for mental health and for primary care. Prior to discharge, family meeting will be arranged by social insurance administrator to his answer any questions and ensure safety. Mental status exam: General Appearance: Patient appears to be stated age is alert, pleasant, and cooperative. Patient is in no acute distress and has fair hygiene and grooming . Tall and obese male. Behavior: Patient is calmly seated without any agitated behavior. Psychomotor activity is normal. Speech: Patient's speech is fluent and nonpressured. Spontaneous, with normal rate, tone. Mood/Affect: Patient reports their mood is "much better", affect is congruent and euthymic. Suicidality/Homicidality: Patient denies having any suicidal or homicidal ideation intent or plan. Perceptions: Patient denies any auditory or visual hallucinations. Though content/process: There is no evidence of any delusional thought content and thought process is linear and goal-directed. Patient is future oriented. Memory and concentration: AOX3, grossly intact for the purposes of this session. Can spell "WORLD" backwards correctly. Judgment and insight: Improved with guarded prognosis Impression: Major depressive disorder with anxious features Plan: -Continue with discharge today as patient has improved and stabilized psychiatrically and is not currently an imminent threat to himself and/or others. Patient reports a supportive family, has no prior attempts at suicide, and is very future oriented. -Continue medications: Zoloft 50 mg by mouth daily for depression/anxiety -Patient was counseled on the need for medication compliance and appropriate follow-up at mental health and also primary care for medical issues. Patient verbalized understanding and agreed. -Social work to arrange for and conduct family meeting to ensure safety upon discharge and answer any questions/concerns. Social work also to arrange for patients follow up appointments [facility] along with follow up with primary care provider. -Patient counseled on abstaining from recreational drugs and marijuana and alcohol. Was informed/educated on the adverse effects on their physical and mental health. Patient verbally agreed and understood. -Patient was instructed to return to the hospital or seek immediate medical care if their psychiatric or medical symptoms do worsen or reoccur. -Psychoeducation and supportive therapy provided to patient. Risks and benefits of pharmacological treatment versus the risks and benefits of nontreatment weight and discussed. Informed consent discussion held. Common side effects of psychotropics discussed such as, but not limited to headache, GI disturbance, sexual dysfunction, movement disorders, sedation, and orthostatic hypotension. Life threatening and blackbox warnings of prescribed medications also discussed. Potential risks of operating a vehicle or heavy machinery discussed with zac foster at length. Advised on importance of compliance and a reliable and responsible manner. Patient advised to review FDA consumer labeling of all medications prior to taking. Patient verbalized understanding of potential risks, and agrees with current treatment plan. Patient advised to medically contact physician/emergency personnel if any acute changes in condition occur. Vital Signs Temp 98.1 F 07/03/20 06:24 Pulse 63 07/03/20 06:24 Resp 16 07/03/20 06:24 BP 141/78 07/03/20 06:24 Pulse Ox 97 06/30/20 17:44 Intake & Output 07/02/20 07/03/20 07/03/20 18:59 06:59 18:59 Weight 119.9 kg Laboratory Results Estimated Ave Glu mg/dL 105 07/01/20 09:18 Hemoglobin A1c 5.3 % (4.0-6.0) 07/01/20 09:18 Triglycerides 286 mg/dL (<150) H 07/01/20 09:18 Cholesterol 229 mg/dL (<200) H 07/01/20 09:18 LDL Cholesterol, Calc 144 mg/dL (0-99) H 07/01/20 09:18 HDL Cholesterol 28 mg/dL (40-60) L 07/01/20 09:18 TSH 1.020 mIU/L (0.465-4.680) 07/01/20 09:18 Urine Opiates Screen Not Detected (NotDetected) 06/30/20 15:20 Ur Oxycodone Screen Not Detected (NotDetected) 06/30/20 15:20 Urine Methadone Screen Not Detected (NotDetected) 06/30/20 15:20 Ur Propoxyphene Screen Not Detected (NotDetected) 06/30/20 15:20 Ur Barbiturates Screen Not Detected (NotDetected) 06/30/20 15:20 U Tricyclic Antidepress Not Detected (NotDetected) 06/30/20 15:20 Ur Phencyclidine Scrn Not Detected (NotDetected) 06/30/20 15:20 Ur Amphetamines Screen Not Detected (NotDetected) 06/30/20 15:20 U Methamphetamines Scrn Not Detected (NotDetected) 06/30/20 15:20 U Benzodiazepines Scrn Detected (NotDetected) H 06/30/20 15:20 Urine Cocaine Screen Not Detected (NotDetected) 06/30/20 15:20 U Marijuana (THC) Screen Not Detected (NotDetected) 06/30/20 15:20 Coronavirus (PCR) Not Detected (Not Detectd) 06/30/20 15:20 Allergies Allergy/AdvReac Type Severity Reaction Status Date / Time No Known Allergies Allergy Verified 06/30/20 16:37 Patient Condition at Discharge: Stable Plan - Discharge Summary Discharge Rx Participant: No New Discharge Prescriptions: New Sertraline [Zoloft] 50 mg PO DAILY 30 Days #30 tab Discontinued Ibuprofen [Motrin] 600 mg PO TID PRN PRN Reason: back pain Discharge Medication List Sertraline [Zoloft] 50 mg PO DAILY 30 Days #30 tab 07/03/20 [Rx] Follow up Appointment(s)/Referral[facility] - [facility]/10/20 11:30 am (Nazario Warren MD [Primary Care Provider] - 1-2 days Patient Instructions/Handouts: Depression (DC) Discharge Disposition: HOME SELF-CARE
== END 2020-07-03 11:15 | disposition home or self-care (01) | DRG 885 ==
LOC: EC 14:48 → 3MHU 17:44
PROVIDERS: ADMIT Psychiatry & Neurology Psychiatry; ATTEND Psychiatry & Neurology Psychiatry
DX: F33.8 Other recurrent depressive disorders (principal); R45.851 Suicidal ideations; R44.0 Auditory hallucinations; Z20.822 Contact with and (suspected) exposure to COVID-19; F41.9 Anxiety disorder, unspecified; R44.1 Visual hallucinations; G47.33 Obstructive sleep apnea (adult) (pediatric); E66.9 Obesity, unspecified; F12.10 Cannabis abuse, uncomplicated; R45.1 Restlessness and agitation; Z68.31 Body mass index [BMI] 31.0-31.9, adult; Z59.9 Problem related to housing and economic circumstances, unspecified; Z98.890 Other specified postprocedural states
CPT/HCPCS: 80061; 80306; 82075; 83036; 84443; 87635; 99285

== ENCOUNTER 2020-09-18 14:22 | Emergency (ER) | payer OTHER ==
[2020-09-18 14:27] VITALS: BP 132/80; PULSE 63; RESP 16; TEMP 97.9
--- NOTE | 2020-09-18 15:28 | ED ---
Back Pain HPI - General Chief Complaint: Back Pain/Injury Stated Complaint: Back pain Time Seen by Provider: 09/18/20 15:19 Source: patient, RN notes reviewed Limitations: no limitations - History of Present Illness Initial Comments: 25-year-old male presents emergency room with low back pain. He denied any injury trauma abnormal movements. He stated the pain started about 3 days ago has been unrelentless with no relief from at home remedies or Tylenol extra strength. He notes that nothing makes the pain better or worse at this point. She denied any history of back trauma injury or lumbar spine diseases. He was in mild pain and distress while sitting up in bed during the exam interview. He had no other complaints or issues. He denied any weakness numbness tingling on his legs decreased range of motion or strength, bladder or bowel incontinence/retention, saddle anesthesia. - Related Data Previous Rx's Medication Instructions Recorded Sertraline [Zoloft] 50 mg PO DAILY 30 Days #30 tab 07/03/20 Cyclobenzaprine [Flexeril] 5 mg PO TID PRN #15 tablet 09/18/20 Allergies Allergy/AdvReac Type Severity Reaction Status Date / Time No Known Allergies Allergy Verified 09/18/20 14:27 Review of Systems ROS Statement: Those systems with pertinent positive or pertinent negative responses have been documented in the HPI. ROS Other: All systems not noted in ROS Statement are negative. Past Medical History Past Medical History: No Reported History Additional Past Medical History / Comment(s): Plantar Fasciitis History of Any Multi-Drug Resistant Organisms: None Reported Past Surgical History: No Surgical Hx Reported Additional Past Surgical History / Comment(s): ingrown toenail, wisdom teeth Past Anesthesia/Blood Transfusion Reactions: No Reported Reaction Past Psychological History: Anxiety, Depression Smoking Status: Never smoker Past Alcohol Use History: Rare General Exam Limitations: no limitations General appearance: alert, in no apparent distress Head exam: Present: atraumatic, normocephalic, normal inspection Eye exam: Present: normal appearance, PERRL, EOMI. Absent: scleral icterus, conjunctival injection, periorbital swelling Neck exam: Present: normal inspection Respiratory exam: Present: normal lung sounds bilaterally. Absent: respiratory distress, wheezes, rales, rhonchi, stridor Cardiovascular Exam: Present: regular rate, normal rhythm, normal heart sounds. Absent: systolic murmur, diastolic murmur, rubs, gallop, clicks Extremities exam: Present: normal inspection, full ROM, normal capillary refill. Absent: tenderness, pedal edema, joint swelling, calf tenderness Back exam: Present: normal inspection, other (Positive well leg raise test on the right) Neurological exam: Present: alert, oriented X3, CN II-XII intact Psychiatric exam: Present: normal affect, normal mood Skin exam: Present: warm, dry, intact, normal color. Absent: rash Course Vital Signs 09/18/20 14:23 Temperature 97.9 F Pulse Rate 63 Respiratory 16 Rate Blood Pressure 132/80 O2 Sat by Pulse 99 Oximetry Medical Decision Making - Medical Decision Making 25-year-old male complaining of low back pain without injury or trauma. X-ray of the lumbar spine ordered. Patient declined pain medication at this point and just does not like taking or using medications. X-ray negative for any acute fractures or dislocations. Case discussed with Dr. Lee, patient can discharge home with follow-up primary care. - Radiology Data Radiology results: report reviewed, image reviewed X-ray of the lumbar spine: The lumbar spine shows stable and satisfactory alignment without evidence of acute fracture dislocation. For Tebo body heights and disc space heights remain within normal limits. Overlying soft tissue appears unremarkable. Disposition Clinical Impression: Strain of lumbar region, Low back pain Disposition: HOME SELF-CARE Condition: Stable Instructions (If sedation given, give patient instructions): Acute Low Back Pain (ED) Additional Instructions: Please return to the Emergency Department if symptoms worsen or any other concerns. Follow-up primary care in 3-5 days. Take muscle relaxer as prescribed, avoid any heavy machine operating. Rest back avoid any strenuous activity or lifting. Talk primary care about possible physical therapy. Is patient prescribed a controlled substance at d/c from ED?: No Referrals: Nazario Jett MD [Primary Care Provider] - 1-2 days Time of Disposition: 16:14
--- NOTE | 2020-09-18 15:46 | XR ---
EXAMINATION TYPE: XR lumbar spine 2 or 3V DATE OF EXAM: 09/18/2020 CLINICAL HISTORY: Back pain. TECHNIQUE: Frontal and lateral images of the lumbar spine are obtained. COMPARISON: CT abdomen and pelvis July 23, 2018 FINDINGS: There are 5 lumbar type vertebral bodies redemonstrated. The lumbar spine shows stable an d satisfactory alignment without evidence of acute fracture or dislocation. Vertebral body heights an d disk space heights remain within normal limits. The overlying soft tissue appears unremarkable. IMPRESSION: As above. Unremarkable study. No significant change from 2019 CT.
== END 2020-09-18 16:17 | disposition home or self-care (01) ==
LOC: EC 14:22
DX: S39.012A Strain of muscle, fascia and tendon of lower back, initial encounter (principal); X58.XXXA Exposure to other specified factors, initial encounter
CPT/HCPCS: 72100; 99283

== ENCOUNTER 2020-10-31 | Emergency (ER) | payer OTHER ==
--- NOTE | 2020-10-31 18:01 | ED ---
Wound/Laceration HPI - General Chief Complaint: Wound/Laceration Stated Complaint: finger injury Time Seen by Provider: 10/31/20 17:28 Source: patient, RN notes reviewed Mode of arrival: ambulatory Limitations: no limitations - History of Present Illness Initial Comments: Patient is a [age] male that presents to emergency room complaining of a right index finger abrasion from a dog with a Tenderness finger. He notes that this happened approximately 6 hours ago and it still bleeding very mildly. He did note that he is up-to-date on his tetanus shot. He denied any complaint or issues at this time. He does have full range of motion and sensation of his index finger. He was in no apparent distress or pain. He denied any chest pain first breath headache nausea vomiting diarrhea constipation fever fatigue chills weakness numbness tingling decreased motion or strength. - Related Data Previous Rx's Medication Instructions Recorded Sertraline [Zoloft] 50 mg PO DAILY 30 Days #30 tab 07/03/20 Cyclobenzaprine [Flexeril] 5 mg PO TID PRN #15 tablet 09/18/20 Allergies Allergy/AdvReac Type Severity Reaction Status Date / Time No Known Allergies Allergy Verified 10/31/20 17:14 Review of Systems ROS Statement: Those systems with pertinent positive or pertinent negative responses have been documented in the HPI. ROS Other: All systems not noted in ROS Statement are negative. Past Medical History Past Medical History: No Reported History Additional Past Medical History / Comment(s): Plantar Fasciitis History of Any Multi-Drug Resistant Organisms: None Reported Past Surgical History: No Surgical Hx Reported Additional Past Surgical History / Comment(s): ingrown toenail, wisdom teeth Past Anesthesia/Blood Transfusion Reactions: No Reported Reaction Past Psychological History: Anxiety, Depression Smoking Status: Never smoker Past Alcohol Use History: Rare General Exam Limitations: no limitations General appearance: alert, in no apparent distress Head exam: Present: atraumatic, normocephalic, normal inspection Eye exam: Present: normal appearance, PERRL, EOMI. Absent: scleral icterus, conjunctival injection, periorbital swelling Neck exam: Present: normal inspection Respiratory exam: Present: normal lung sounds bilaterally. Absent: respiratory distress, wheezes, rales, rhonchi, stridor Cardiovascular Exam: Present: regular rate, normal rhythm, normal heart sounds. Absent: systolic murmur, diastolic murmur, rubs, gallop, clicks Extremities exam: Present: normal inspection, full ROM, normal capillary refill, other (Small abrasion to the dorsal aspect of the right index finger.). Absent: tenderness, pedal edema, joint swelling, calf tenderness Neurological exam: Present: alert, oriented X3 Psychiatric exam: Present: normal affect, normal mood Skin exam: Present: warm, dry, intact, normal color. Absent: rash Course Vital Signs 10/31/20 17:09 Temperature 98.8 F Pulse Rate 76 Respiratory 18 Rate Blood Pressure 136/82 O2 Sat by Pulse 98 Oximetry Medical Decision Making - Medical Decision Making 25-year-old male with a small abrasion to his index finger coming in to get evaluated for mild bleeding after several hours. No imaging or testing done at this time due to surface level abrasion and small sized abrasion. Patient is up-to-date on his tetanus. Case discussed with Dr. Thornton, patient can discharge home. Disposition Clinical Impression: Abrasion hand Disposition: HOME SELF-CARE Condition: Stable Instructions (If sedation given, give patient instructions): Abrasion (ED) Additional Instructions: Please return to the Emergency Department if symptoms worsen or any other concerns. Can apply Neosporin to the abrasion and some pressure to stop bleeding. Follow-up with primary care as needed. Is patient prescribed a controlled substance at d/c from ED?: No Referrals: Nazario Jett MD [Primary Care Provider] - 1-2 days Time of Disposition: 18:01
== END 2020-10-31 18:06 | disposition home or self-care (01) ==
CPT/HCPCS: 99283

== ENCOUNTER 2021-04-06 00:28 | Emergency (ER) | payer OTHER ==
--- NOTE | 2021-04-06 01:17 | XR ---
EXAMINATION TYPE: XR chest 2V DATE OF EXAM: 04/06/2021 COMPARISON: 08/14/2019 HISTORY: Cough TECHNIQUE: FINDINGS: Heart and mediastinum are normal. Lungs are clear. Diaphragm is normal. Bony thorax appears normal. IMPRESSION: Normal chest. No change.
--- NOTE | 2021-04-06 01:39 | ED ---
URI HPI - General Chief Complaint: Shortness of Breath Stated Complaint: Sinus Infection Time Seen by Provider: 04/06/21 00:36 Source: patient Mode of arrival: ambulatory Limitations: no limitations - History of Present Illness Initial Comments: This patient is a 25-year-old man who presents to be evaluated for what he suspects is either pneumonia or sinus infection. Patient states that approximately 3 days ago he started to have a little bit of congestion and sinus drainage. He states that he usually gets a sinus infection in March of a rear and he thought that this was the onset of another sinus infection. He started having a little bit of cough associated and was concerned because he previously had walking pneumonia. Patient has not noted fever or chills. No other symptoms. Patient did have Matthew Matthew vaccine in July or August of this year. MD Complaint: cough, rhinorrhea, nasal congestion Onset/Timin -: days(s) Severity: moderate Quality: dull Consistency: constant Improves With: nothing Worsens With: nothing Context: sick contacts Associated Symptoms: rhinorrhea, nasal congestion, cough Treatments Prior to Arrival: none - Related Data Previous Rx's Medication Instructions Recorded Sertraline [Zoloft] 50 mg PO DAILY 30 Days #30 tab 07/03/20 Cyclobenzaprine [Flexeril] 5 mg PO TID PRN #15 tablet 09/18/20 Allergies Allergy/AdvReac Type Severity Reaction Status Date / Time No Known Allergies Allergy Verified 04/06/21 00:34 Review of Systems ROS Statement: Those systems with pertinent positive or pertinent negative responses have been documented in the HPI. ROS Other: All systems not noted in ROS Statement are negative. Constitutional: Denies: fever, chills ENT: Reports: congestion. Denies: throat pain, hearing loss Respiratory: Reports: cough. Denies: dyspnea, hemoptysis Cardiovascular: Denies: chest pain, palpitations, edema Gastrointestinal: Denies: abdominal pain, nausea, vomiting, diarrhea Genitourinary: Denies: dysuria, hematuria Musculoskeletal: Denies: back pain Skin: Denies: rash Neurological: Denies: headache, weakness, numbness Past Medical History Past Medical History: Pneumonia Additional Past Medical History / Comment(s): Plantar Fasciitis History of Any Multi-Drug Resistant Organisms: None Reported Past Surgical History: No Surgical Hx Reported Additional Past Surgical History / Comment(s): ingrown toenail, wisdom teeth Past Anesthesia/Blood Transfusion Reactions: No Reported Reaction Past Psychological History: Anxiety, Depression Smoking Status: Never smoker Past Alcohol Use History: Rare Past Drug Use History: None Reported General Exam Limitations: no limitations General appearance: alert, in no apparent distress Head exam: Present: atraumatic, normocephalic Eye exam: Present: normal appearance. Absent: scleral icterus, conjunctival injection ENT exam: Present: normal oropharynx, mucous membranes moist Neck exam: Present: normal inspection, full ROM. Absent: meningismus Respiratory exam: Present: normal lung sounds bilaterally. Absent: respiratory distress, wheezes, rales, rhonchi, stridor Cardiovascular Exam: Present: regular rate, normal rhythm, normal heart sounds. Absent: systolic murmur, diastolic murmur, rubs, gallop GI/Abdominal exam: Present: soft. Absent: distended, tenderness, guarding, rebound, rigid, mass Extremities exam: Present: normal inspection, normal capillary refill. Absent: pedal edema, calf tenderness Back exam: Present: normal inspection. Absent: CVA tenderness (R), CVA tenderness (L) Neurological exam: Present: alert Skin exam: Present: warm, dry, intact, normal color. Absent: rash Course Vital Signs 04/06/21 00:31 Temperature 99.7 F H Pulse Rate 99 Respiratory 22 Rate Blood Pressure 150/90 O2 Sat by Pulse 95 Oximetry Medical Decision Making - Lab Data Lab Results 04/06/21 Range/Units 00:54 Coronavirus (PCR) Detected A (Not Detectd) Disposition Clinical Impression: COVID Disposition: HOME SELF-CARE Condition: Good Instructions (If sedation given, give patient instructions): Coronavirus Disease 2019 (COVID-19) Is patient prescribed a controlled substance at d/c from ED?: No Referrals: Nazario Jett MD [Primary Care Provider] - 1-2 days
[2021-04-06] MEDS ORDERED: BAMLANIVIMAB (EUA) 700 MG, ETESEVIMAB (EUA) 1,400 MG in SODIUM CHLORIDE 0.9% 50 ML IVPB ONE (02:00)
[2021-04-06] MEDS ORDERED: SODIUM CHLORIDE 0.9% 50 ML IVPB ONE (02:00)
[2021-04-06 04:06] VITALS: BP 122/80; PULSE 85; RESP 18; TEMP 98
== END 2021-04-06 04:06 | disposition home or self-care (01) ==
LOC: EC 00:28
DX: U07.1 COVID-19 (principal)
CPT/HCPCS: 87635; 71046; 99285; 96365; J3490

== ENCOUNTER 2021-07-13 01:28 | Emergency (ER) | payer OTHER ==
[2021-07-13 01:37] VITALS: BP 152/101; PULSE 104; RESP 22; TEMP 98.2
[2021-07-13] MEDS ORDERED: AMOXIC-POT CLAV 875-125MG 1 EACH TAB PO STA (01:54)
[2021-07-13] MEDS ORDERED: DIPH,PERTUS(ACELL)TETVAC-LF 0.5 ML VIAL IM ONE (01:57)
--- NOTE | 2021-07-13 02:16 | ED ---
General Adult HPI - General Chief complaint: Animal Bite Stated complaint: dog bite Time Seen by Provider: 07/13/21 01:48 Source: patient, family Mode of arrival: ambulatory Limitations: no limitations - History of Present Illness Initial comments: 25-year-old male presents to the emergency department for evaluation of puncture wounds to the right hand sustained from a dog bite approximately 10 minutes prior to arrival. Patient states this animal is unknown to him. No active bleeding. This patient has not received a tetanus shot in the last 10 years. Did not cleanse wounds prior to arrival. No loss of sensation or function in the affected hand. Denies any further injuries at this time. - Related Data Previous Rx's Medication Instructions Recorded Sertraline [Zoloft] 50 mg PO DAILY 30 Days #30 tab 07/03/20 Cyclobenzaprine [Flexeril] 5 mg PO TID PRN #15 tablet 09/18/20 Amoxicillin/Potassium Clav 1 tab PO Q12HR 10 Days #20 tab 07/13/21 [Augmentin 875-125 Tablet] Allergies Allergy/AdvReac Type Severity Reaction Status Date / Time No Known Allergies Allergy Verified 07/13/21 01:37 Review of Systems ROS Statement: Those systems with pertinent positive or pertinent negative responses have been documented in the HPI. ROS Other: All systems not noted in ROS Statement are negative. Past Medical History Past Medical History: Pneumonia Additional Past Medical History / Comment(s): Plantar Fasciitis History of Any Multi-Drug Resistant Organisms: None Reported Past Surgical History: No Surgical Hx Reported Additional Past Surgical History / Comment(s): ingrown toenail, wisdom teeth Past Anesthesia/Blood Transfusion Reactions: No Reported Reaction Past Psychological History: Anxiety, Depression Smoking Status: Never smoker Past Alcohol Use History: Rare Past Drug Use History: None Reported General Exam Limitations: no limitations (Well-developed, well-nourished male in no acute distress. Initial temperature 98.2, pulse 104, respirations 22, blood pressure 152/101, pulse ox 96% on room air.) General appearance: alert, in no apparent distress Respiratory exam: Present: normal lung sounds bilaterally. Absent: respiratory distress, wheezes, rales, rhonchi, stridor Cardiovascular Exam: Present: regular rate, normal rhythm, normal heart sounds. Absent: systolic murmur, diastolic murmur, rubs, gallop, clicks Right Forearm Wrist exam: Present: normal inspection, full ROM. Absent: tenderness, swelling Hand Wrist exam: Present: full ROM, tenderness (Tenderness upon palpation of the palmar surface around site of), other (There is one small puncture wound on the palmar surface near the third digit and one abrasion on the palmar surface at the proximal phalanx on the third digit) Neuro motor exam: Present: wrist extension intact, fingers 2-5 abduction intact, other (Extension and flexion of affected digit intact) Vascular: Present: vascular compromise, normal capillary refill, radial pulse, ulnar pulse. Absent: Pallo Neurological exam: Present: alert, oriented X3, CN II-XII intact Psychiatric exam: Present: normal affect, normal mood Skin exam: Present: warm, dry, normal color. Absent: rash Course Vital Signs 07/13/21 01:31 Temperature 98.2 F Pulse Rate 104 H Respiratory 22 Rate Blood Pressure 152/101 O2 Sat by Pulse 96 Oximetry - Reevaluation(s) Reevaluation #1: 07/13/21 02:05 Wounds thoroughly cleansed and irrigated. Patient tolerated without difficulty. Medical Decision Making - Medical Decision Making 75-year-old male presents to the emergency department for evaluation of injury sustained in a dog bite approximately 10 minutes prior to arrival. Upon exam, patient is well-appearing and in no acute distress. Patient has 2 small puncture wounds on the palmar surface of the right hand. One puncture wound is near the base of the 4th proximal phalanx, the second is near the MIP of the third digit. No erythema, edema, or contusion noted. Flexion and extension of the affected digit intact. X-ray was negative. Wounds cleansed and thoroughly irrigated. Bacitracin dressing applied. Oral antibiotic given. Wound care discussed at length. Tetanus shot administered. Rabies series was not initiated at 6 this dog was collared and there is minimal risk in this community. Patient was encouraged to follow up with PCP. Strict return parameters were discussed in detail. Patient verbalizes understanding and agrees with this plan. This patient's care was discussed with my attending Dr. Putnam. - Radiology Data Radiology results: report reviewed, image reviewed X-ray of the right hand was obtained. Report was reviewed in its entirety. Impression per Dr. Gifford is negative right hand exam. No fracture. Disposition Clinical Impression: Dog bite Disposition: HOME SELF-CARE Condition: Stable Instructions (If sedation given, give patient instructions): Animal Bite (ED) Additional Instructions: Cleanse wounds twice daily with soap and water. Keep hand covered while at work. Take antibiotic as directed. Tylenol or Motrin for pain/discomfort. Follow-up with your PCP for recheck on Friday. Return to the emergency department with any increased redness, swelling, or fever. Prescriptions: Amoxicillin/Potassium Clav [Augmentin 875-125 Tablet] 1 tab PO Q12HR 10 Days #20 tab Is patient prescribed a controlled substance at d/c from ED?: No Referrals: Nazario Jett MD [Primary Care Provider] - 1-2 days Time of Disposition: 02:53
--- NOTE | 2021-07-13 02:34 | XR ---
EXAMINATION TYPE: XR hand complete RT DATE OF EXAM: 07/13/2021 COMPARISON: NONE HISTORY: Dog bite TECHNIQUE: 4 views FINDINGS: Metacarpals are intact. I see no fracture nor dislocation. There are no erosions. Joint spa geremias are normal. IMPRESSION: Negative right hand exam. No fracture
[2021-07-13] MEDS ORDERED: BACITRACIN OINT 1 EACH PACKET TOPICAL ONE (02:52)
== END 2021-07-13 03:02 | disposition home or self-care (01) ==
LOC: EC 01:28
DX: T14.8XXA Other injury of unspecified body region, initial encounter (principal); W54.0XXA Bitten by dog, initial encounter
CPT/HCPCS: 90471; 90715; 99283

== ENCOUNTER 2022-11-11 18:53 | Emergency (ER) | payer OTHER ==
[2022-11-11] MEDS ORDERED: ONDANSETRON ODT 4 MG TAB PO STA (20:04)
[2022-11-11] MEDS ORDERED: DEXAMETHASONE SOD PHOSPHATE 10 MG/ML 1 ML VIAL IVP STA (20:04)
[2022-11-11] MEDS ORDERED: KETOROLAC 15 MG/ML 1 ML VIAL IVP STA (20:04)
[2022-11-11] MEDS ORDERED: SODIUM CHLORIDE 0.9% 2,000 ML IV STA (20:04)
--- NOTE | 2022-11-11 20:11 | ED ---
ENT HPI - General Chief complaint: Recheck/Abnormal Lab/Rx Stated complaint: sore throat, fever previously, Time Seen by Provider: 11/11/22 19:49 Source: patient, RN notes reviewed Mode of arrival: ambulatory Limitations: no limitations - History of Present Illness Initial comments: This is a 27-year-old male who presents the emergency department for a sore throat, fevers, and fatigue. States that yesterday he threw up several times, however he states that this may have been due to the heat outside. He then proceeded to sleep until 5 PM today and has had problems with a sore throat and headache. He has had difficulty talking and swallowing due to the sore throat. He has minor congestion. Denies any coughing. He did have a fever earlier toda y, but is unsure how high it had gotten. Denies any sick contacts. Denies any cough, dyspnea, chest pain, palpitations, abdominal pain, nausea, vomiting, diarrhea, or back pain. MD complaint: sore throat - Related Data Previous Rx's Medication Instructions Recorded Sertraline [Zoloft] 50 mg PO DAILY 30 Days #30 tab 07/03/20 Cyclobenzaprine [Flexeril] 5 mg PO TID PRN #15 tablet 09/18/20 Amoxicillin/Potassium Clav 1 tab PO Q12HR 10 Days #20 tab 07/13/21 [Augmentin 875-125 Tablet] Amoxic-Pot Clav 875-125Mg 1 tab PO Q12HR 10 Days #20 tab 11/11/22 [Augmentin 875-125] Allergies Allergy/AdvReac Type Severity Reaction Status Date / Time No Known Allergies Allergy Verified 11/11/22 19:02 Review of Systems ROS Statement: Those systems with pertinent positive or pertinent negative responses have been documented in the HPI. ROS Other: All systems not noted in ROS Statement are negative. Past Medical History Past Medical History: Pneumonia Additional Past Medical History / Comment(s): Plantar Fasciitis History of Any Multi-Drug Resistant Organisms: None Reported Past Surgical History: No Surgical Hx Reported Additional Past Surgical History / Comment(s): ingrown toenail, wisdom teeth Past Anesthesia/Blood Transfusion Reactions: No Reported Reaction Past Psychological History: Anxiety, Depression Smoking Status: Never smoker Past Alcohol Use History: Rare Past Drug Use History: None Reported General Exam Limitations: no limitations General appearance: alert, in no apparent distress Head exam: Present: atraumatic, normocephalic, normal inspection ENT exam: Present: TM's normal bilaterally, normal external ear exam, other (Posterior pharyngeal erythema and 2+ tonsillar hypertrophy. No exudates.) Respiratory exam: Present: normal lung sounds bilaterally. Absent: respiratory distress, wheezes, rales, rhonchi, stridor Cardiovascular Exam: Present: regular rate, normal rhythm, normal heart sounds. Absent: systolic murmur, diastolic murmur, rubs, gallop, clicks Neurological exam: Present: alert, oriented X3, CN II-XII intact Psychiatric exam: Present: normal affect, normal mood Skin exam: Present: warm, dry, intact, normal color. Absent: rash Course Vital Signs 11/11/22 11/11/22 18:57 21:25 Temperature 97.5 F L 97.8 F Pulse Rate 97 75 Respiratory 18 16 Rate Blood Pressure 128/84 138/76 O2 Sat by Pulse 97 97 Oximetry Medical Decision Making - Medical Decision Making This is a 27-year-old male who presents to the emergency department for a sore throat and fatigue. Was pt. sent in by a medical professional or institution? @ -No Did you speak to anyone other than the patient for history? @ -No Did you review nursing and triage notes? @ -Yes, and I agree, it is accurate with regards to the patient's symptoms. Were old charts reviewed? @ -No Differential Diagnosis? @ -Differential Sore Throat: Strep pharyngitis, herpes zoster, COVID, influenza, GERD, allergic rhinitis, mononucleosis, this is not meant to be an all-inclusive list. EKG interpreted by me (3pts min.)? @ -Not obtained X-rays interpreted by me (1pt min.)? @ -Not obtained CT interpreted by me (1pt min.)? @ -Not obtained U/S interpreted by me (1pt. min.)? @ -Not obtained What testing was considered but not performed? (CT, X-rays, U/S, labs)? Why? @ -None What meds were considered but not given? Why? @ -None Did you discuss the management of the patient with other professionals? @ -No Did you reconcile home meds? @ -No Was smoking cessation discussed for >3mins.? @ -No Was critical care preformed (if so, how long)? @ -No Were there social determinants of health that impacted care today? How? (Homelessness, low income, unemployed, alcoholism, drug addiction, tra nsportation, low edu. Level, literacy, decrease access to med. care, assisted, rehab)? @ -No Was there de-escalation of care discussed even if they declined? (Discuss DNR or withdrawal of care, Hospice)? @ -No What co-morbidities impacted this encounter? (DM, HTN, Smoking, COPD, CAD, Cancer, CVA, Hep., AIDS, mental health diagnosis, sleep apnea, morbid obesity)? @ -None Was patient admitted / discharged? @ -Discharged. I had planned on simply checking the patient for strep throat and giving him a dose of steroids. However, patient was very concerned and requested blood work and IV fluids. Lab work was obtained and found to be nonactionable. He was given IV fluids, Toradol, and Decadron, which he felt was very beneficial. Rapid strep test was positive. He was given a dose of Augmentin in the emergency department. Prescription for Augmentin provided with dosing instructions reviewed. Otherwise advised supportive care, such as alternating with ibuprofen and Tylenol for pain relief and if he develops any additional fevers. Undiagnosed new problem with uncertain prognosis? @ -None Drug Therapy requiring intensive monitoring for toxicity (Heparin, Nitro, Insulin, Cardizem)? @ -None Were any procedures done? @ -None Diagnosis/symptom? @ -Strep pharyngitis Acute, or Chronic, or Acute on Chronic? @ -Acute Uncomplicated (without systemic symptoms) or Complicated (systemic symptoms)? @ -Uncomplicated Side effects of treatment? @ -None Exacerbation, Progression, or Severe Exacerbation] @ -Not applicable Poses a threat to life or bodily function? @ -No Return precautions reviewed in depth, the patient is instructed to return to the emergency department with any new, worsening, or concerning symptoms. Patient verbalized understanding. This case was discussed in detail with the attending ED physician, Dr. Putnam. Presentation, findings, and treatment plan discussed in detail as well. - Lab Data Result diagrams: 11/11/22 20:27 11/11/22 20:27 Lab Results 11/11/22 11/11/22 11/11/22 Range/Units 20:09 20:27 20:27 WBC 9.3 (3.8-10.6) k/uL RBC 5.32 (4.30-5.90) m/uL Hgb 15.4 (13.0-17.5) gm/dL Hct 45.4 (39.0-53.0) % MCV 85.3 (80.0-100.0) fL MCH 28.9 (25.0-35.0) pg MCHC 33.9 (31.0-37.0) g/dL RDW 12.4 (11.5-15.5) % Plt Count 234 (150-450) k/uL MPV 7.5 Neutrophils % 70 % Lymphocytes % 20 % Monocytes % 7 % Eosinophils % 2 % Basophils % 0 % Neutrophils # 6.5 (1.3-7.7) k/uL Lymphocytes # 1.8 (1.0-4.8) k/uL Monocytes # 0.7 (0-1.0) k/uL Eosinophils # 0.2 (0-0.7) k/uL Basophils # 0.0 (0-0.2) k/uL Sodium 140 (137-145) mmol/L Potassium 4.1 (3.5-5.1) mmol/L Chloride 106 (98-107) mmol/L Carbon Dioxide 26 (22-30) mmol/L Anion Gap 8 mmol/L BUN 15 (9-20) mg/dL Creatinine 0.77 (0.66-1.25) mg/dL Est GFR (CKD-EPI)AfAm >90 (>60 ml/min/1.73 sqM) Est GFR (CKD-EPI)NonAf >90 (>60 ml/min/1.73 sqM) Glucose 102 H (74-99) mg/dL Calcium 9.3 (8.4-10.2) mg/dL Total Bilirubin 1.2 (0.2-1.3) mg/dL AST 21 (17-59) U/L ALT 32 (4-49) U/L Alkaline Phosphatase 91 (38-126) U/L Total Protein 7.6 (6.3-8.2) g/dL Albumin 4.4 (3.5-5.0) g/dL Group A Strep (PCR) DETECTED A (Not Detectd) Disposition Clinical Impression: Strep pharyngitis Disposition: HOME SELF-CARE Instructions (If sedation given, give patient instructions): Strep Throat (ED) Additional Instructions: Return to the emergency department with any new, worsening, or concerning symptoms. Take the antibiotic as prescribed for 10 days. Alternate with ibuprofen and Tylenol as needed for pain relief. Follow up with your primary care provider in 1-2 days. Prescriptions: Amoxic-Pot Clav 875-125Mg [Augmentin 875-125] 1 tab PO Q12HR 10 Days #20 tab Is patient prescribed a controlled substance at d/c from ED?: No Referrals: None,Stated [Primary Care Provider] - 1-2 days
[2022-11-11 20:41] LABS: Basophils % (A) 0 %; Eosinophils # (A) 0.2 k/uL (0-0.7); Eosinophils % (A) 2 %; HCT 45.4 % (39.0-53.0); HGB 15.4 gm/dL (13.0-17.5); Lymphocytes # (A) 1.8 k/uL (1.0-4.8); Lymphocytes % (A) 20 %; MCH 28.9 pg (25.0-35.0); MCHC 33.9 g/dL (31.0-37.0); MCV 85.3 fL (80.0-100.0); Mean Platelet Volume 7.5; Monocytes # (A) 0.7 k/uL (0-1.0); Monocytes % (A) 7 %; Neutrophils # (A) 6.5 k/uL (1.3-7.7); Neutrophils % (A) 70 %; Platelet Count 234 k/uL (150-450); RBC 5.32 m/uL (4.30-5.90); RDW 12.4 % (11.5-15.5); WBC 9.3 k/uL (3.8-10.6)
[2022-11-11 20:51] LABS: ALT 32 U/L (4-49); AST 21 U/L (17-59); African American GFR (CKD) >90 (>60 ml/min/1.73 sqM); Albumin 4.4 g/dL (3.5-5.0); Alkaline Phosphatase 91 U/L (38-126); Anion Gap 8 mmol/L; Blood Urea Nitrogen 15 mg/dL (9-20); Calcium 9.3 mg/dL (8.4-10.2); Carbon Dioxide 26 mmol/L (22-30); Chloride 106 mmol/L (98-107); Glucose 102 mg/dL (74-99); Non-African American GFR(CKD) >90 (>60 ml/min/1.73 sqM); Potassium 4.1 mmol/L (3.5-5.1); Sodium 140 mmol/L (137-145); Total Bilirubin 1.2 mg/dL (0.2-1.3); Total Protein 7.6 g/dL (6.3-8.2)
[2022-11-11] MEDS ORDERED: AMOXIC-POT CLAV 875MG STARTER PACK 2 TAB BTL PO STA (21:15)
[2022-11-11] MEDS ORDERED: ONDANSETRON 4 MG ODT STARTER PACK 2 TAB BTL PO STA (21:15)
[2022-11-11 21:27] VITALS: BP 138/76; PULSE 75; RESP 16; TEMP 97.8
== END 2022-11-11 21:27 | disposition home or self-care (01) ==
LOC: EC 18:53
DX: J02.0 Streptococcal pharyngitis (principal); B95.0 Streptococcus, group A, as the cause of diseases classified elsewhere; Z86.59 Personal history of other mental and behavioral disorders
CPT/HCPCS: 36415; 87651; 80053; 85025; 99283; 96374; 96375; 96361; J1100; J1885; S0119

== ENCOUNTER 2022-11-16 23:34 | Emergency (ER) | payer OTHER ==
[2022-11-17 00:16] LABS: ALT 29 U/L (4-49); AST 25 U/L (17-59); African American GFR (CKD) >90 (>60 ml/min/1.73 sqM); Albumin 3.9 g/dL (3.5-5.0); Alkaline Phosphatase 89 U/L (38-126); Anion Gap 12 mmol/L; Blood Urea Nitrogen 21 mg/dL (9-20); Calcium 8.5 mg/dL (8.4-10.2); Carbon Dioxide 19 mmol/L (22-30); Chloride 107 mmol/L (98-107); Glucose 108 mg/dL (74-99); Non-African American GFR(CKD) >90 (>60 ml/min/1.73 sqM); Potassium 3.5 mmol/L (3.5-5.1); Sodium 138 mmol/L (137-145); Total Bilirubin 0.5 mg/dL (0.2-1.3); Total Protein 6.8 g/dL (6.3-8.2)
[2022-11-17 00:20] LABS: INR 0.9 (<1.2); Partial Thromboplastin Time 22.6 sec (22.0-30.0); Prothrombin Time 9.7 sec (9.0-12.0)
[2022-11-17 00:29] LABS: Basophils % (A) 0 %; Eosinophils # (A) 0.2 k/uL (0-0.7); Eosinophils % (A) 2 %; HCT 41.1 % (39.0-53.0); HGB 13.9 gm/dL (13.0-17.5); Lymphocytes # (A) 3.4 k/uL (1.0-4.8); Lymphocytes % (A) 37 %; MCH 28.4 pg (25.0-35.0); MCHC 33.7 g/dL (31.0-37.0); MCV 84.2 fL (80.0-100.0); Mean Platelet Volume 7.4; Monocytes # (A) 0.4 k/uL (0-1.0); Monocytes % (A) 5 %; Neutrophils # (A) 4.9 k/uL (1.3-7.7); Neutrophils % (A) 54 %; Platelet Count 279 k/uL (150-450); RBC 4.88 m/uL (4.30-5.90); RDW 12.1 % (11.5-15.5); WBC 9.1 k/uL (3.8-10.6)
[2022-11-17] MEDS ORDERED: SODIUM CHLORIDE 0.9% 1,000 ML IV STA (00:43)
[2022-11-17] MEDS ORDERED: ONDANSETRON 4 MG/2 ML VIAL IVP STA (00:43)
[2022-11-17] MEDS ORDERED: CARBAMIDE PEROXIDE 6.5% DROPS 15 ML BTL BOTH EARS STA (00:44)
[2022-11-17 01:10] VITALS: PULSE 70; RESP 16
--- NOTE | 2022-11-17 01:17 | ED ---
Dizziness HPI - General Chief Complaint: Dizziness Stated Complaint: Syncope Time Seen by Provider: 11/17/22 00:00 Source: patient Mode of arrival: ambulatory Limitations: no limitations - History of Present Illness Initial Comments: Patient is a 27-year-old male presents the emergency department for lightheadedness. Patient states he was having a bowel movement today when he felt very lightheaded and almost had a syncopal episode. Patient denies history of syncope and arrhythmia. He had 2 episodes of vomiting after. He denies a fever, abdominal pain, chest pain, shortness of breath. He is currently being treated for strep throat on antibiotics. Patient also reports ear fullness and decreased hearing in both of his ears states he saw an machining and assembly supervisor who said he needed to have the earwax removed from his ears before getting hearing aids. - Related Data Previous Rx's Medication Instructions Recorded Sertraline [Zoloft] 50 mg PO DAILY 30 Days #30 tab 07/03/20 Cyclobenzaprine [Flexeril] 5 mg PO TID PRN #15 tablet 09/18/20 Amoxicillin/Potassium Clav 1 tab PO Q12HR 10 Days #20 tab 07/13/21 [Augmentin 875-125 Tablet] Amoxic-Pot Clav 875-125Mg 1 tab PO Q12HR 10 Days #20 tab 11/11/22 [Augmentin 875-125] Ondansetron Odt [Zofran Odt] 4 mg PO Q8HR PRN #12 tab 11/17/22 Allergies Allergy/AdvReac Type Severity Reaction Status Date / Time No Known Allergies Allergy Verified 11/16/22 23:46 Review of Systems ROS Statement: Those systems with pertinent positive or pertinent negative responses have been documented in the HPI. ROS Other: All systems not noted in ROS Statement are negative. Past Medical History Past Medical History: Pneumonia Additional Past Medical History / Comment(s): Plantar Fasciitis History of Any Multi-Drug Resistant Organisms: None Reported Past Surgical History: No Surgical Hx Reported Additional Past Surgical History / Comment(s): ingrown toenail, wisdom teeth Past Anesthesia/Blood Transfusion Reactions: No Reported Reaction Past Psychological History: Anxiety, Depression Smoking Status: Never smoker Past Alcohol Use History: Rare Past Drug Use History: None Reported General Exam Limitations: no limitations General appearance: alert, in no apparent distress Head exam: Present: atraumatic, normocephalic, normal inspection ENT exam: Present: normal oropharynx, mucous membranes moist. Absent: TM's normal bilaterally (bilateral cerumen impaction ) Respiratory exam: Present: normal lung sounds bilaterally. Absent: respiratory distress, wheezes, rales, rhonchi, stridor Cardiovascular Exam: Present: regular rate, normal rhythm, normal heart sounds. Absent: systolic murmur, diastolic murmur, rubs, gallop, clicks GI/Abdominal exam: Present: soft, normal bowel sounds. Absent: distended, tenderness, guarding, rebound, rigid Extremities exam: Present: normal inspection, full ROM, normal capillary refill Neurological exam: Present: alert, oriented X3, CN II-XII intact Psychiatric exam: Present: normal affect, normal mood Skin exam: Present: warm, dry, intact, normal color. Absent: rash Course Vital Signs 11/16/22 11/17/22 11/17/22 23:46 00:49 02:06 Temperature 97.7 F 98.2 F Pulse Rate 64 70 70 Respiratory 18 16 16 Rate Blood Pressure 140/94 133/73 132/74 O2 Sat by Pulse 98 98 98 Oximetry Medical Decision Making - Medical Decision Making EKG taken at 23:41, interpreted by myself Sinus rhythm, no ST segment or T-wave abnormality Ventricular rate 68, ID interval 133, QRS duration 98, QTC 408 Was pt. sent in by a medical professional or institution ([facility], [facility], urgent care, hospital, or care home...) When possible be specific @ -No Did you speak to anyone other than the patient for history (EMS, parent, family, police, friend...)? What history was obtained from this source @ -No Did you review nursing and triage notes (agree or disagree)? Why? @ -I reviewed and agree with nursing and triage notes Were old charts reviewed (outside hosp., previous admission, EMS record, old EKG, old radiological studies, urgent care reports/EKG's, care home records)? Report findings @ -No old charts were reviewed Differential Diagnosis (chest pain, altered mental status, abdominal pain women, abdominal pain men, vaginal bleeding, weakness, fever, dyspnea, syncope, hea dache, dizziness, GI bleed, back pain, seizure, CVA, palpatations, mental health)? @ -Differential Syncope: Valvular disease, hypertrophic cardiomyopathy, pulmonary embolism, tamponade, tachycardia, bradycardia, MD, hypovolemia, hemorrhage, dissection, anemia, intracranial hemorrhage, seizure, hypoglycemia, carbon monoxide poisoning, this is not meant to be an all-inclusive list. EKG interpreted by me (3pts min.). @ -As above X-rays interpreted by me (1pt min.). No acute cardiopulmonary process CT interpreted by me (1pt min.). @ -None done U/S interpreted by me (1pt. min.). @ -None done What testing was considered but not performed or refused? (CT, X-rays, U/S, labs)? Why? @ -None What meds were considered but not given or refused? Why? @ -None Did you discuss the management of the patient with other professionals (gerhard hurley i.e., Dr., PA, [facility], lab, RT, psych nurse, director social, high school art teacher, teacher, third officer, continuous pillowcase cutter)? Give summary @ -No Was smoking cessation discussed for >3mins.? @ -No Was critical care preformed (if so, how long)? @ -No Were there social determinants of health that impacted care today? How? (Homelessness, low income, unemployed, alcoholism, drug addiction, transportation, low edu. Level, literacy, decrease access to med. care, assisted, rehab)? @ -No Was there de-escalation of care discussed even if they declined (Discuss DNR or withdrawal of care, Hospice)? DNR status @ -No What co-morbidities impacted this encounter? (DM, HTN, Smoking, COPD, CAD, Cancer, CVA, ARF, Chemo, Hep., AIDS, mental health diagnosis, sleep apnea, morbid obesity)? @ -None Was patient admitted / discharged? Hospital course, mention meds given and route, prescriptions, significant lab abnormalities, going to OR and other pertinent info. @ -Patient presents for near syncopal episode. Patient is well-appearing vitals within normal limits. EKG shows no evidence acute ischemia. Troponin within normal limits. Other laboratory studies relatively unremarkable. Patient had large fluid bolus and Zofran. No further episodes of vomiting. Results discussed with patient. I suspect near syncopal episode related to vasovagal etiology Patient does have bilateral cerumen impaction he was given Debrox and will need to establish care with a primary care provider for removal. Undiagnosed new problem with uncertain prognosis? @ -No Drug Therapy requiring intensive monitoring for toxicity (Heparin, Nitro, Insulin, Cardizem)? @ -No Were any procedures done? @ -No Diagnosis/symptom? @ -lightheadedness, bilateral cerumen impaction Acute, or Chronic, or Acute on Chronic? @ -acute Uncomplicated (without systemic symptoms) or Complicated (systemic symptoms)? @ -uncomplicated Side effects of treatment? @ -No Exacerbation, Progression, or Severe Exacerbation? @ -No Poses a threat to life or bodily function? How? (Chest pain, USA, MD, pneumonia, PE, COPD, DKA, ARF, appy, cholecystitis, CVA, Diverticulitis, Homicidal, Suicidal, threat to staff... and all critical care pts) @ -No Dr. Putnam is my attending - Lab Data Result diagrams: 11/16/22 23:56 11/16/22 23:56 Lab Results 11/16/22 11/16/22 11/16/22 Range/Units 23:56 23:56 23:56 WBC 9.1 (3.8-10.6) k/uL RBC 4.88 (4.30-5.90) m/uL Hgb 13.9 (13.0-17.5) gm/dL Hct 41.1 (39.0-53.0) % MCV 84.2 (80.0-100.0) fL MCH 28.4 (25.0-35.0) pg MCHC 33.7 (31.0-37.0) g/dL RDW 12.1 (11.5-15.5) % Plt Count 279 (150-450) k/uL MPV 7.4 Neutrophils % 54 % Lymphocytes % 37 % Monocytes % 5 % Eosinophils % 2 % Basophils % 0 % Neutrophils # 4.9 (1.3-7.7) k/uL Lymphocytes # 3.4 (1.0-4.8) k/uL Monocytes # 0.4 (0-1.0) k/uL Eosinophils # 0.2 (0-0.7) k/uL Basophils # 0.0 (0-0.2) k/uL PT 9.7 (9.0-12.0) sec INR 0.9 (<1.2) APTT 22.6 (22.0-30.0) sec Sodium 138 (137-145) mmol/L Potassium 3.5 (3.5-5.1) mmol/L Chloride 107 (98-107) mmol/L Carbon Dioxide 19 L (22-30) mmol/L Anion Gap 12 mmol/L BUN 21 H (9-20) mg/dL Creatinine 0.89 (0.66-1.25) mg/dL Est GFR (CKD-EPI)AfAm >90 (>60 ml/min/1.73 sqM) Est GFR (CKD-EPI)NonAf >90 (>60 ml/min/1.73 sqM) Glucose 108 H (74-99) mg/dL Plasma Lactic Acid Tarik (0.7-2.0) mmol/L Calcium 8.5 (8.4-10.2) mg/dL Magnesium (1.6-2.3) mg/dL Total Bilirubin 0.5 (0.2-1.3) mg/dL AST 25 (17-59) U/L ALT 29 (4-49) U/L Alkaline Phosphatase 89 (38-126) U/L Troponin I (0.000-0.034) ng/mL Total Protein 6.8 (6.3-8.2) g/dL Albumin 3.9 (3.5-5.0) g/dL 11/16/22 11/16/22 11/17/22 Range/Units 23:56 23:56 00:01 WBC (3.8-10.6) k/uL RBC (4.30-5.90) m/uL Hgb (13.0-17.5) gm/dL Hct (39.0-53.0) % MCV (80.0-100.0) fL MCH (25.0-35.0) pg MCHC (31.0-37.0) g/dL RDW (11.5-15.5) % Plt Count (150-450) k/uL MPV Neutrophils % % Lymphocytes % % Monocytes % % Eosinophils % % Basophils % % Neutrophils # (1.3-7.7) k/uL Lymphocytes # (1.0-4.8) k/uL Monocytes # (0-1.0) k/uL Eosinophils # (0-0.7) k/uL Basophils # (0-0.2) k/uL PT (9.0-12.0) sec INR (<1.2) APTT (22.0-30.0) sec Sodium (137-145) mmol/L Potassium (3.5-5.1) mmol/L Chloride (98-107) mmol/L Carbon Dioxide (22-30) mmol/L Anion Gap mmol/L BUN (9-20) mg/dL Creatinine (0.66-1.25) mg/dL Est GFR (CKD-EPI)AfAm (>60 ml/min/1.73 sqM) Est GFR (CKD-EPI)NonAf (>60 ml/min/1.73 sqM) Glucose (74-99) mg/dL Plasma Lactic Acid Tarik 1.6 (0.7-2.0) mmol/L Calcium (8.4-10.2) mg/dL Magnesium 1.8 (1.6-2.3) mg/dL Total Bilirubin (0.2-1.3) mg/dL AST (17-59) U/L ALT (4-49) U/L Alkaline Phosphatase (38-126) U/L Troponin I <0.012 (0.000-0.034) ng/mL Total Protein (6.3-8.2) g/dL Albumin (3.5-5.0) g/dL Disposition Clinical Impression: Impacted cerumen of both ears, Lightheadedness Disposition: HOME SELF-CARE Condition: Good Instructions (If sedation given, give patient instructions): Dizziness (ED) Additional Instructions: Apply 6 drops to each ear twice a day for 4 days max. You will then need your ears flush to remove the earwax. It is important to establish care with a primary care provider. Return to emergency department if you experience new, concerning, or worsening symptoms Prescriptions: Ondansetron Odt [Zofran Odt] 4 mg PO Q8HR PRN #12 tab PRN Reason: Nausea Is patient prescribed a controlled substance at d/c from ED?: No Referrals: Nonstaff,Physician [Primary Care Provider] - 1-2 days
[2022-11-17 02:07] VITALS: BP 132/74; TEMP 98.2
== END 2022-11-17 02:06 | disposition home or self-care (01) ==
LOC: EC 23:34
DX: H61.23 Impacted cerumen, bilateral (principal); R42 Dizziness and giddiness; Z86.59 Personal history of other mental and behavioral disorders
CPT/HCPCS: 36415 ×2; 93005; 80053; 83605; 83735; 84484; 85025; 85610; 85730; 99284; 96374; J2405